=== PATIENT | female | born 1945 | race Caucasian/White ===

== ENCOUNTER → 2017-12-02 | Outpatient (CLI) | payer MEDICARE ==
--- NOTE | 2017-12-02 15:36 | US ---
EXAMINATION TYPE: US bladder DATE OF EXAM: 12/02/2017 COMPARISON: NONE CLINICAL HISTORY: Hematuria R31.9. EXAM MEASUREMENTS: vascular mass left lower bladder wall 1.6 x 1.5 x 1.4 cm Post Void Residual Volume: 11.2 mL Color Doppler performed to assess ureteral jets. Bilateral Jets seen: Yes Normal Post Void Residual (less than 50ml): Yes IMPRESSION: There is 1.6 cm suspicious bladder wall mass, neoplasm is suspected given patient's hist ory of hematuria. Further investigation with cystoscopy is advised. A Yellow level critical message alert has been initiated for David De La O DO via the [employer] Critical Results System on 12/02/2017 3:33 PM. This message alert has been sent to David menchaca DO via the preferences provided by the clinician for the receipt of Radiology Critical Findings. Message ID [id number].
--- NOTE | 2017-12-02 15:37 | US ---
EXAMINATION TYPE: US pelvic complete DATE OF EXAM: 12/02/2017 COMPARISON: NONE CLINICAL HISTORY: Hematuria R31.9. TECHNIQUE: . Transabdominal sonographic images of the pelvis were acquired. Date of LMP: 20 years ago EXAM MEASUREMENTS: Uterus: 6.8 x 2.2 x 3.7 cm Endometrial Stripe: 0.5 cm Right Ovary: 1.9x1.4x1.6 cm Left Ovary: 1.7x1.1x0.9 cm 1. Uterus: Anteverted lower uterine segment small cystic area 1.3 x 0.5 x 0.5 cm 2. Endometrium: Upper limits of normal for post menopausal 3. Right Ovary: wnl 4. Left Ovary: wnl 5. Bilateral Adnexa: wnl 6. Posterior cul-de-sac: wnl IMPRESSION : transabdominal pelvic ultrasound felt within normal limits.
== END | disposition home or self-care (01) ==
LOC: RADUSWWP 14:55
PROVIDERS: ATTEND Family Medicine
DX: R31.9 Hematuria, unspecified (principal)
CPT/HCPCS: 76856; 76857

== ENCOUNTER → 2017-12-21 | Outpatient (CLI) | payer MEDICARE ==
[2017-12-21 14:35] LABS: Blood Urea Nitrogen 6 mg/dL (7-17)
--- NOTE | 2017-12-21 18:47 | CT ---
EXAMINATION TYPE: CT abdomen pelvis w con DATE OF EXAM: 12/21/2017 COMPARISON: Ultrasound 12/02/2017 INDICATION: Gross hematuria DLP: 1214 mGycm, Automated exposure control for dose reduction was used. CONTRAST: 100 mL of Isovue 300. Study performed with Oral Contrast TECHNIQUE: Axial images were obtained from above the diaphragm to the pubic rami in the axial plane a t 5 mm thick sections. Reconstructed images are reviewed on the computer in the coronal plane. FINDINGS: Limited CT sections are obtained the lung bases. The lung bases are clear. There is a moderate size hiatal hernia present. CT ABDOMEN: Liver: Normal Spleen: Normal Pancreas: Normal Adrenal glands: The adrenal glands are normal. Gallbladder: Normal Kidneys: No masses are evident. No hydronephrosis is present. No cysts are present. Delayed images were obtained through the kidneys, which remain unremarkable. Aorta: Vascular calcification is within the aorta. Transverse dimension distal abdominal aorta is 2. 0 cm. This terminates above the bifurcation. Inferior vena cava: Normal. CT PELVIS: Loops of bowel within the abdomen and pelvis are normal. There are loops of bowel which are incom pletely distended or lack oral contrast limiting their evaluation. Multiple diverticuli are within th e sigmoid colon. Appendix: Normal as visualized. Urinary bladder: There is a hyperdense area within the left ureterovesical junction region estimated to measure 1.2 x 1.9 cm in size. Cystoscopy is recommended for additional evaluation. Urinary bladder otherwise appears unremarkable. No calcifications are identified within the urinary bladder. Genitourinary structures: Uterus is normal. Adnexal regions are clear. Osseous structures: No suspicious lytic or sclerotic lesions. IMPRESSIONS: 1. 1.2 x 1.9 cm hyperdense mass within the left posterior lateral portion of the urinary bladder. Cy stoscopy is recommended for additional evaluation. Neoplasm should be considered. 2. Diverticulosis without acute diverticulitis. 3. Minimal increased transverse dimension of the distal abdominal aorta 2.0 cm. 4. Moderate size hiatal hernia.
== END | disposition home or self-care (01) ==
LOC: RADCTMAIN 13:46
PROVIDERS: ATTEND Urology
DX: K44.9 Diaphragmatic hernia without obstruction or gangrene (principal); N32.89 Other specified disorders of bladder; K57.30 Diverticulosis of large intestine without perforation or abscess without bleeding; I71.4 Abdominal aortic aneurysm, without rupture
CPT/HCPCS: 82565; 84520; 74177; 36415; Q9967

== ENCOUNTER 2018-03-09 07:49 | Day surgery (SDC) | payer MEDICARE ==
[~2018-03-09 07:49] MED LIST: ALPRAZolam 0.25 MG TAB PO PRN; ASPIRIN 325 MG TAB PO STA; SODIUM CHLORIDE 0.9% 1,000 ML in EMPTY BAG 1 BAG IV ONE
[2018-03-09 08:40] LABS: Basophils % (A) 0 %; Eosinophils % (A) 1 %; HCT 44.3 % (34.0-46.0); HGB 14.1 gm/dL (11.4-16.0); Lymphocytes # (A) 1.3 k/uL (1.0-4.8); Lymphocytes % (A) 19 %; MCH 29.5 pg (25.0-35.0); MCHC 31.9 g/dL (31.0-37.0); MCV 92.5 fL (80.0-100.0); Mean Platelet Volume 7.3; Monocytes # (A) 0.5 k/uL (0-1.0); Monocytes % (A) 8 %; Neutrophils # (A) 4.6 k/uL (1.3-7.7); Neutrophils % (A) 70 %; Platelet Count 309 k/uL (150-450); RBC 4.79 m/uL (3.80-5.40); RDW 13.4 % (11.5-15.5); WBC 6.6 k/uL (3.8-10.6)
[2018-03-09 08:51] LABS: Anion Gap 12 mmol/L; Blood Urea Nitrogen 8 mg/dL (7-17); Calcium 9.7 mg/dL (8.4-10.2); Carbon Dioxide 24 mmol/L (22-30); Chloride 98 mmol/L (98-107); Glucose 104 mg/dL (74-99); Potassium 4.4 mmol/L (3.5-5.1); Sodium 134 mmol/L (137-145)
[2018-03-09] MEDS ORDERED: IV FLUID CONTINUATION 950 ML IV ONE (09:14)
[2018-03-09] MEDS ORDERED: MIDAZOLAM 2 MG/2 ML VIAL IVP ONE (09:50)
[2018-03-09] MEDS ORDERED: LIDOCAINE 1% INJ 10MG/ML (20 ML MDV) SQ ONE (09:53)
[2018-03-09] MEDS ORDERED: HEPARIN SODIUM 1,000 UN/ML (10ML VL) IV ONE (10:02)
[2018-03-09] MEDS: MIDAZOLAM 2 MG/2 ML VIAL IVP ONE ×2 (10:06→10:17)
[2018-03-09] MEDS ORDERED: SODIUM CHLORIDE 0.9% 500 ML with niCARdipine 6.25 MG, NITROGLYCERIN-D5W PMX 0.05 MG, HE... IV ONE ×4 (10:07)
[2018-03-09] MEDS: fentaNYL (PF) 50 MCG/ML 2 ML AMP IV ONE ×3 (10:38→11:31)
[2018-03-09] MEDS ORDERED: CLOPIDOGREL 75 MG TAB PO ONE (11:16)
[2018-03-09] MEDS ORDERED: NITROGLYCERIN 1000MCG/10ML SYRINGE INTRAARTER ONE (11:37)
[2018-03-09] MEDS: niCARdipine Syringe (1,000 mcg/10 mL) INTRAARTER ONE ×2 (11:37→11:53)
[2018-03-09] MEDS ORDERED: IOPAMIDOL-250 100ML BTL INTRAARTER ONE (12:00)
[2018-03-09] MEDS ORDERED: SODIUM CHLORIDE 0.9% 1,000 ML IV SCH (12:15)
--- NOTE | 2018-03-09 12:27 | IR ---
EXAMINATION TYPE: IR shrimp boat captain femoral popliteal DATE OF EXAM: 03/09/2018 COMPARISON: NONE HISTORY: Peripheral vascular occlusive disease. Fluoroscopy was provided to the referring clinician. See dictated report from cardiology.
--- NOTE | 2018-03-09 14:39 | LTR ---
DATE OF SERVICE: March 09, [address] De La O: Ms. Madeleine Jordan underwent successful atherectomy and balloon angioplasty of the left femoral artery with good angiographic results and without any complication. Thank you for allowing us to participate in her care and please do not hesitate to call if you have any questions or concerns. Sincerely, MMODL / IJN: [id number] /
[2018-03-09] MEDS ORDERED: ATROPINE SULFATE 0.1 MG/ML 10ML SYRINGE ONE (15:59)
--- NOTE | 2018-03-09 17:24 | AN ---
ANGIOGRAPHY REPORT DATE OF SERVICE: March 09, 2018 PERFORMING PHYSICIAN: Sawyer Kemp MD. PROCEDURE PERFORMED: 1. Selective left nrpdu-gjs-ghkm angiogram. 2. Selective left popliteal /SFA angiogram. 3. Selective right common femoral artery angiogram. 4. An atherectomy of the left SFA using the TurboHawk device with extraction of significant amount of plaque. 5. Successful balloon angioplasty of the left SFA using drug coated balloon with good angiographic results. 6. Stenting of the distal SFA using self expandable stent with good angiographic results as well. INDICATION: This is a pleasant 72-year-old female patient who was experiencing bilateral lower extremity intermittent claudication and underwent a peripheral angiogram a few weeks ago and that revealed occluded bilateral SFA. She was brought today to undergo a peripheral intervention on the left SFA and subsequently the right SFA. APPROACH: Right common femoral artery. COMPLICATION: None. LEVEL OF SEDATION: Moderate, sedation length of 2 hours and 5 minutes. PROCEDURE DESCRIPTION: After obtaining an informed consent, the patient was brought to cardiac crown and bridge dental lab technician. The right common femoral artery was cannulated using micropuncture technique and a micropuncture wire passed easily. Then I placed a 6-Indonesian sheath in the right common femoral artery. The sheath was 6-Indonesian 11 cm. At that point, anticoagulation was initiated using heparin and the patient was given 5000 units of heparin. Continuous while the procedure was performed. Subsequently, I did select the left superficial femoral artery using a 5-Indonesian rim catheter with Advantage wire. The Advantage wire was advanced to the left profunda. After that, I did exchange my 11 cm 6-Indonesian sheath into 55 cm 6-Indonesian sheath over the Advantage wire. The tip of the sheath was positioned in the left common femoral artery. After that, I did cross the chronic total occlusion of the left superficial femoral artery using 018 wire. The wire was advanced to the left popliteal. After that, I did balloon angioplasty of the left SFA using 4-0 mm balloon before I did atherectomy using the TurboHawk device with extraction of significant amount of plaque. Subsequently I did balloon angioplasty of the left SFA using drug coated balloon which was 5 mm balloon. The following angiogram showed good angiographic results for the ostial, proximal, mid and distal SFA except for the junction at the Eze canal which showed dissection and narrowing about 50-60 percent quite concerning. Because of that, I decided to cover that with a stent, so I did deploy 7.0 x 60 mm self expandable stent where the stent was positioned under fluoroscopy guidance and deployed under under fluoroscopy guidance. The following angiogram showed good angiographic results and the procedure was completed without any complication. Selective left djerr-rjd-ucbp angiogram post after completion of the procedure showed sluggish flow in the peroneal artery with good flow in the AP and PT. After that, I did exchange my 55 cm sheath into 11 cm sheath using a 035 advantage wire before I did selective right common femoral artery angiogram. The procedure was completed without any complications. POSTPROCEDURE MANAGEMENT: 1. Dual anti-platelet therapy. 2. Risk factors modifications. 3. Follow up with the patient. MMODL / IJN: [id number] /
[2018-03-09 18:08] VITALS: RESP 16
[2018-03-10 06:54] LABS: Basophils % (A) 0 %; Eosinophils # (A) 0.1 k/uL (0-0.7); Eosinophils % (A) 1 %; HCT 40.3 % (34.0-46.0); HGB 13.3 gm/dL (11.4-16.0); Lymphocytes # (A) 1.1 k/uL (1.0-4.8); Lymphocytes % (A) 16 %; MCH 30.5 pg (25.0-35.0); MCHC 32.9 g/dL (31.0-37.0); MCV 92.8 fL (80.0-100.0); Mean Platelet Volume 7.7; Monocytes # (A) 0.8 k/uL (0-1.0); Monocytes % (A) 11 %; Neutrophils # (A) 4.8 k/uL (1.3-7.7); Neutrophils % (A) 70 %; Platelet Count 267 k/uL (150-450); RBC 4.35 m/uL (3.80-5.40); RDW 13.4 % (11.5-15.5); WBC 6.9 k/uL (3.8-10.6)
[2018-03-10 07:11] LABS: Anion Gap 7 mmol/L; Blood Urea Nitrogen 5 mg/dL (7-17); Calcium 9.3 mg/dL (8.4-10.2); Carbon Dioxide 28 mmol/L (22-30); Chloride 99 mmol/L (98-107); Glucose 97 mg/dL (74-99); Potassium 4.3 mmol/L (3.5-5.1); Sodium 134 mmol/L (137-145)
[2018-03-10] MEDS ORDERED: ATORVASTATIN 40 MG TAB PO SCH (09:00)
[2018-03-10] MEDS ORDERED: ASPIRIN 81 MG PO SCH (09:00)
[2018-03-10] MEDS ORDERED: LISINOPRIL 20 MG TAB PO SCH (09:00)
[2018-03-10] MEDS ORDERED: CLOPIDOGREL 75 MG TAB PO SCH (09:00)
[2018-03-10 09:26] VITALS: BP 147/66; PULSE 75; TEMP 96.5
[2018-03-10 10:15] VITALS: BMI 17.2
--- NOTE | 2018-03-10 11:06 | P.PN ---
Subjective Progress Note Date: 03/10/18 03/10/2018 This is a 72-year-old female who had been experiencing bilateral lower extremity intermittent claudication and underwent a peripheral angiogram a few weeks ago which revealed occluded bilateral SFAs. She was brought into the hospital yesterday by Dr. Ibarra and underwent an arthrectomy of the left FSA with extraction of significant amount of plaque. Patient also underwent successful balloon angioplasty of the left SFA with good results. Stenting of the distal SFA using self-expandable stent. She was seen and examined this morning, feels well, quite anxious to be discharged home. Blood pressure 140/68 , heart rate in the 60s, 98% on room air. White blood cell count 6.9, hemoglobin 13.3, platelet count 267. Sodium 134, potassium 4.3, BUN 5, creatinine 0.5. Objective - Vital Signs Vital signs: Vital Signs Temp 96.5 F L 03/10/18 08:00 Pulse 75 03/10/18 08:00 Resp 16 03/10/18 04:00 BP 147/66 03/10/18 08:00 Pulse Ox 97 03/10/18 08:00 Intake & Output 03/09/18 03/10/18 03/10/18 18:59 06:59 18:59 Intake Total 250 150 240 Output Total 1100 Balance 250 -950 240 Weight 44.8 kg 45.4 kg 45.4 kg Intake: IV 250 150 Sodium Chloride 0.9% 1, 150 000 ml @ 75 mls/hr IV . [id number] [facility] Rx#:[id number] Oral 240 Output: Urine 1100 Other: Voiding Method Indwelling Catheter Toilet # Voids 1 - Exam PHYSICAL EXAMINATION: GENERAL: 72-year-old female in no acute distress at the time of my examination HEENT: Head is atraumatic, normocephalic. Pupils equal, round. Sclera anicteric. Conjunctiva are clear. Mucous membranes of the mouth are moist. Neck is supple. There is no elevated jugular venous pressure.] bruit is heard. HEART EXAMINATION: [Heart S1, S2 normal. No murmur or gallop heard.] CHEST EXAMINATION:[ Lungs are clear to auscultation and precussion. No chest wall tenderness is noted on palpation or with deep breathing.] ABDOMEN: [ Soft, nontender. Bowel sounds are heard. No organomegaly noted]. EXTREMITIES:[ 2+ peripheral pulses with no evidence of peripheral edema and no calf tenderness noted]. Right groin has a small pea-sized firm area, no bruit is heard, Dopplers distal pulse. NEUROLOGIC [patient is awake, alert and oriented ?-3.] . - Labs CBC & Chem 7: 03/10/18 06:14 03/10/18 06:14 Labs: Abnormal Lab Results - Last 24 Hours (Table) 03/10/18 Range/Units 06:14 Sodium 134 L (137-145) mmol/L BUN 5 L (7-17) mg/dL Assessment and Plan Plan: Assessment and plan #1 status post arthrectomy of the left SFA with extraction of significant plaque , successful balloon angioplasty of the left SFA, stenting of the distal SFA #2 hypertension #3 hyperlipidemia #4 history of bladder cancer #5 nicotine dependence Patient may be discharged home today on dual antiplatelet therapy in the form of aspirin and Plavix, she will also continue her lisinopril. Appointment with Dr. Ibarra in the office post discharge. DNP note has been reviewed, I agree with a documented findings and plan of care. Patient was seen and examined.
== END 2018-03-10 11:50 | disposition home or self-care (01) ==
LOC: CATHCVL 07:49 → 6SEL 11:44 → CATHCVL 03-10 11:50
PROVIDERS: ATTEND Internal Medicine Interventional Cardiology
DX: I70.213 Atherosclerosis of native arteries of extremities with intermittent claudication, bilateral legs (principal); I70.92 Chronic total occlusion of artery of the extremities; F17.210 Nicotine dependence, cigarettes, uncomplicated; I10 Essential (primary) hypertension; E78.5 Hyperlipidemia, unspecified; Z85.51 Personal history of malignant neoplasm of bladder; Z79.899 Other long term (current) drug therapy; Z79.82 Long term (current) use of aspirin
CPT/HCPCS: 37227; 80048 ×2; 85025 ×2; C1894 ×2; C1769 ×5; C1725 ×2; C1876; C1714; C2623 ×2; J2250; J2001; J3010; J1644; Q9966

== ENCOUNTER 2018-04-13 08:52 | Day surgery (SDC) | payer MEDICARE ==
[2018-04-13] MEDS: SODIUM CHLORIDE 0.9% 1,000 ML IV SCH (09:29)
[2018-04-13 09:33] LABS: Basophils % (A) 1 %; Eosinophils # (A) 0.1 k/uL (0-0.7); Eosinophils % (A) 1 %; HCT 40.5 % (34.0-46.0); HGB 13.1 gm/dL (11.4-16.0); Lymphocytes # (A) 1.2 k/uL (1.0-4.8); Lymphocytes % (A) 20 %; MCH 30.4 pg (25.0-35.0); MCHC 32.4 g/dL (31.0-37.0); Mean Platelet Volume 7.1; Monocytes # (A) 0.6 k/uL (0-1.0); Monocytes % (A) 10 %; Neutrophils # (A) 3.9 k/uL (1.3-7.7); Neutrophils % (A) 67 %; Platelet Count 291 k/uL (150-450); RBC 4.31 m/uL (3.80-5.40); RDW 13.5 % (11.5-15.5); WBC 5.9 k/uL (3.8-10.6)
[2018-04-13 09:48] LABS: Anion Gap 8 mmol/L; Blood Urea Nitrogen 7 mg/dL (7-17); Calcium 9.4 mg/dL (8.4-10.2); Carbon Dioxide 28 mmol/L (22-30); Chloride 101 mmol/L (98-107); Glucose 92 mg/dL (74-99); Sodium 137 mmol/L (137-145)
[2018-04-13] MEDS: MIDAZOLAM 2 MG/2 ML VIAL IV ONE ×2 (11:08→11:53)
[2018-04-13] MEDS ORDERED: LIDOCAINE 1% INJ 10MG/ML (20 ML MDV) SQ ONE (11:09)
[2018-04-13] MEDS ORDERED: HEPARIN SODIUM 1,000 UN/ML (10ML VL) IV ONE (11:15)
[2018-04-13] MEDS ORDERED: fentaNYL (PF) 50 MCG/ML 2 ML AMP IV ONE (12:35)
[2018-04-13] MEDS ORDERED: MIDAZOLAM 2 MG/2 ML VIAL IV ONE (12:44)
[2018-04-13] MEDS ORDERED: CLOPIDOGREL 75 MG TAB PO ONE (12:52)
[2018-04-13] MEDS ORDERED: NITROGLYCERIN 1000MCG/10ML SYRINGE INTRAARTER ONE (12:54)
[2018-04-13] MEDS ORDERED: niCARdipine 25 MG/10 ML VIAL INTRAARTER ONE (12:54)
[2018-04-13] MEDS ORDERED: IOPAMIDOL-250 100ML BTL INTRAARTER ONE (13:12)
[2018-04-13] MEDS ORDERED: SODIUM CHLORIDE 0.9% 1,000 ML IV SCH (13:30)
--- NOTE | 2018-04-13 14:27 | LTR ---
DATE OF SERVICE: 04/13/2018 RE: Madeleine Jordan. Dear Dr. De La O: Ms. Madeleine Jordan underwent successful angioplasty of her left femoral artery a few weeks ago and today she underwent successful angioplasty of the right femoral artery with good angiographic results and without any complication. I want to thank you for allowing me to participate in her care and please do not hesitate to call if you have any question or concern. Sincerely, MD ARMAAN Harris / UMERN: [id number] /
[2018-04-13] MEDS ORDERED: ATROPINE SULFATE 0.1 MG/ML 10ML SYRINGE ONE (16:14)
--- NOTE | 2018-04-13 17:24 | AN ---
ANGIOGRAPHY REPORT DATE OF SERVICE: April 13, 2018 PERFORMING PHYSICIAN: Sawyer Kemp MD, creative guru. PROCEDURE PERFORMED: 1. Selective left common femoral artery angiogram. 2. Selective right jaigx-pho-tmqi angiogram. 3. Selective right popliteal/SFA angiogram. 4. Successful crossing of chronic total occlusion of the right SFA. 5. Atherectomy of the right SFA using the orbital atherectomy device from [employer]. 6. Successful balloon angioplasty of the proximal and mid right SFA. 7. Successful stenting of the distal right SFA using 5.5 x 150 mm Supera stent with good angiographic results. INDICATION: This is a very pleasant 72-year-old female patient who has known history of peripheral arterial disease and known occluded bilateral SFA, who underwent successful balloon angioplasty of the left SFA and was brought today to undergo balloon angioplasty of the right SFA. She does have severe bilateral lower extremities intermittent claudication. APPROACH: Left common femoral artery. COMPLICATION: None. LEVEL OF SEDATION: Moderate with sedation length of 1 hour and 53 minutes. PROCEDURE DESCRIPTION: After obtaining an informed consent, the patient was brought to cardiac laborer chicken farm. The left common femoral artery was cannulated using micropuncture technique, the micropuncture wire passed easily and I placed a 6-Mosotho sheath in the left common femoral artery. Anticoagulation was initiated using heparin. The patient was given 5000 units of heparin IV. After that I did select the right SFA using a 5-Mosotho rim catheter with 035 stiff Glidewire. After that, I did exchange my 11 cm 6-Mosotho sheath into 70 cm 6-Mosotho sheath using 035 stiff Glidewire. After that I did selective right lgyvj-cev-luan angiogram, selective right popliteal angiogram, and selective right SFA angiogram as well. After that, I was able to cross the chronic total occlusion of the right SFA using .018 Gold Tip Glidewire with adjunctive use of 035 stiff Glidewire. After that I did atherectomy of the right SFA using the orbital atherectomy device from [employer]. Then I did balloon angioplasty of the right SFA initially using 4 mm regular balloon and subsequently using 5 mm Chocolate balloon. After that, the following angiogram showed what seems to be dissection seems to be flow-limiting involving the distal SFA which I stented using the Supera the stent which was 5.5 x 150 mm, which was positioned under fluoroscopy guidance and deployed under fluoroscopy guidance. For the proximal and mid right SFA, I did balloon angioplasty using 5 mm drug-coated balloon for the mid and 6 mm drug-coated balloon for the proximal. The following angiogram showed excellent angiographic results with non flow limiting dissection involving the ostial SFA. The procedure was completed without any complication. After that I did exchange my 70 cm 6-Mosotho sheath into 11 cm 6-Mosotho sheath using the 035 glide wire. The procedure, at that point, was completed without any complication. POSTPROCEDURE MANAGEMENT: 1. Dual anti-platelet therapy. 2. Risk factor modifications. 3. Follow up with the patient. MMODL / IJN: [id number] /
[2018-04-14] MEDS: SODIUM CHLORIDE 0.9% 1,000 ML IV SCH (03:41)
[2018-04-14 06:57] LABS: Basophils % (A) 0 %; Eosinophils % (A) 1 %; HCT 37.7 % (34.0-46.0); HGB 11.9 gm/dL (11.4-16.0); Lymphocytes # (A) 0.8 k/uL (1.0-4.8); Lymphocytes % (A) 12 %; MCH 29.8 pg (25.0-35.0); MCHC 31.6 g/dL (31.0-37.0); MCV 94.3 fL (80.0-100.0); Mean Platelet Volume 7.6; Monocytes # (A) 0.7 k/uL (0-1.0); Monocytes % (A) 10 %; Neutrophils % (A) 76 %; Platelet Count 249 k/uL (150-450); RBC 3.99 m/uL (3.80-5.40); RDW 13.4 % (11.5-15.5); WBC 6.6 k/uL (3.8-10.6)
[2018-04-14 07:10] LABS: Anion Gap 6 mmol/L; Blood Urea Nitrogen 5 mg/dL (7-17); Calcium 8.9 mg/dL (8.4-10.2); Carbon Dioxide 26 mmol/L (22-30); Chloride 103 mmol/L (98-107); Glucose 90 mg/dL (74-99); Potassium 4.1 mmol/L (3.5-5.1); Sodium 135 mmol/L (137-145)
[2018-04-14 07:43] VITALS: BP 133/65; PULSE 77; RESP 18; TEMP 97.2
--- NOTE | 2018-04-14 08:57 | IR ---
EXAMINATION TYPE: IR stent intravas non coronary DATE OF EXAM: 04/13/2018 COMPARISON: NONE HISTORY: Peripheral vascular occlusive disease. Fluoroscopy was provided to the referring clinician. See dictated report from cardiology.
[2018-04-14] MEDS ORDERED: ATORVASTATIN 40 MG TAB PO SCH (09:00)
[2018-04-14] MEDS ORDERED: LISINOPRIL 10 MG TAB PO SCH (09:00)
[2018-04-14] MEDS ORDERED: ASPIRIN 81 MG PO SCH (09:00)
[2018-04-14] MEDS ORDERED: CLOPIDOGREL 75 MG TAB PO SCH (09:00)
[2018-04-14 10:20] VITALS: BMI 18.1
--- NOTE | 2018-04-14 18:19 | DS ---
DISCHARGE SUMMARY ADMISSION DATE: April 13, 2018 DATE OF DISCHARGE: April 14, 2018 BRIEF HISTORY: This is a pleasant 73-year-old female patient who was admitted to the hospital yesterday and underwent successful crossing of chronic total occlusion of the right SFA along with atherectomy and balloon angioplasty of the right SFA with good angiographic results. The procedure was performed from the left groin. The left groin is soft and nontender and without any bruises. The patient is going to be discharged home on dual anti- platelet therapy and I will follow up with the patient in the office as an outpatient. MMGIOVANNI / UMERN: [id number] /
== END 2018-04-14 09:59 | disposition home or self-care (01) ==
LOC: CATHCVL 08:52 → 6SEL 13:02 → CATHCVL 04-14 09:59
PROVIDERS: ATTEND Internal Medicine Interventional Cardiology
DX: I70.213 Atherosclerosis of native arteries of extremities with intermittent claudication, bilateral legs (principal); I70.92 Chronic total occlusion of artery of the extremities; F17.210 Nicotine dependence, cigarettes, uncomplicated; Z95.820 Peripheral vascular angioplasty status with implants and grafts; I10 Essential (primary) hypertension; E78.5 Hyperlipidemia, unspecified; Z79.02 Long term (current) use of antithrombotics/antiplatelets; Z79.82 Long term (current) use of aspirin; Z79.899 Other long term (current) drug therapy
CPT/HCPCS: 37227; 80048; 85025

== ENCOUNTER → 2018-11-30 | Outpatient (CLI) | payer MEDICARE ==
--- NOTE | 2018-11-30 11:38 | XR ---
EXAMINATION TYPE: XR chest 2V DATE OF EXAM: 11/30/2018 COMPARISON: NONE HISTORY: Abnormal weight loss. TECHNIQUE: Frontal and lateral views of the chest are obtained. FINDINGS: Pulmonary hyperinflation, flattening of diaphragms, and increased anterior posterior diame ter of the chest are compatible with underlying COPD. There is minimal biapical pleural parenchymal s carring. There is tortuosity of the descending thoracic aorta. Exaggerated thoracic kyphosis is seen with mid thoracic compression deformity that is age indeterminant. Generalized osseous demineralizati on is also present. No focal consolidation, pleural effusion or pneumothorax. Cardiomediastinal silho uette is within normal limits. IMPRESSION: 1. COPD with no acute cardiopulmonary process. 2. Mid thoracic compression deformity is age indeterminant. Correlate with point tenderness.
== END | disposition home or self-care (01) ==
LOC: RADXRMAIN 11:17
PROVIDERS: ATTEND Family Medicine
DX: J44.9 Chronic obstructive pulmonary disease, unspecified (principal); R63.4 Abnormal weight loss
CPT/HCPCS: 71046

== ENCOUNTER → 2019-01-20 | Outpatient (CLI) | payer MEDICARE ==
[2019-01-20 08:40] LABS: African American GFR (CKD) >90 (>60 ml/min/1.73 sqM); Blood Urea Nitrogen 9 mg/dL (7-17)
--- NOTE | 2019-01-20 09:29 | CT ---
EXAMINATION TYPE: CT iac wo/w con DATE OF EXAM: 01/20/2019 COMPARISON: None HISTORY: Right ear infection, pain, and vertigo CT DLP: 365 mGycm Automated exposure control for dose reduction was used. CONTRAST: CT scan of the IACs is performed without and with IV Contrast, patient injected with 100 mL of Isovue 300. FINDINGS: The external auditory canals are patent bilaterally. Mastoid air cells show no evidence of abnormal opacification bilaterally. There is soft tissue noted within the right middle ear cavity pa rtially encasing the ossicular chain measuring 1.2 x 0.9 cm. The findings are felt to reflect cholest eatoma. Left-sided ossicular chain and middle ear cavity are free of mass lesion. The scutum is prese rved bilaterally. The cochlea and the semicircular canals are symmetric and unremarkable. Vestibula r aqueduct and internal carotid canal appear unremarkable. Temporomandibular joints are maintained b ilaterally. IMPRESSION: 1.There is soft tissue noted within the right middle ear cavity partially encasing the ossicular cris n measuring 1.2 x 0.9 cm. The findings are felt to reflect cholesteatoma.
== END | disposition home or self-care (01) ==
LOC: RADCTMAIN 08:00
PROVIDERS: ATTEND Otolaryngology
DX: H71.91 Unspecified cholesteatoma, right ear (principal); M79.89 Other specified soft tissue disorders; R42 Dizziness and giddiness
CPT/HCPCS: 82565; 84520; 70482; 36415; Q9967

== ENCOUNTER → 2019-06-21 | Outpatient (CLI) | payer MEDICARE ==
--- NOTE | 2019-06-22 11:54 | MM ---
Reason for exam: screening (asymptomatic). Last mammogram was performed 3 years and 9 months ago. History: Patient is postmenopausal and has history of other cancer at age 73. Physical Findings: A clinical breast exam by your physician is recommended on an annual basis and results should be correlated with mammographic findings. MG Screening Mammo w CAD Bilateral CC and MLO view(s) were taken. Prior study comparison: September 24, 2015, bilateral MG screening mammo w CAD. The breast tissue is extremely dense which could obscure a lesion on mammography. Benign appearing calcifications in the left breast. Right central slightly inferior focal asymmetry at middle depth. ASSESSMENT: Incomplete: need additional imaging evaluation, BI-RAD 0 RECOMMENDATION: Special view mammogram of the right breast. If lesion persists on supplemental views, image directed ultrasound is recommended. [facility] will attempt to contact patient to return for supplemental views and ultrasound if indicated.
== END | disposition home or self-care (01) ==
LOC: RADMAMWWP 09:18
PROVIDERS: ATTEND Family Medicine
DX: Z12.31 Encounter for screening mammogram for malignant neoplasm of breast (principal)
CPT/HCPCS: 77067

== ENCOUNTER → 2019-07-03 | Outpatient (CLI) | payer MEDICARE ==
--- NOTE | 2019-07-04 07:45 | MM ---
Reason for exam: additional evaluation requested from abnormal screening. Last mammogram was performed less than 1 month ago. History: Patient is postmenopausal and has history of other cancer at age 73. Physical Findings: Nurse did not find any significant physical abnormalities on exam. MG Work Up Mamm w CAD RT Spot compression CC, spot compression MLO, and ML view(s) were taken of the right breast. Prior study comparison: June 21, 2019, bilateral MG screening mammo w CAD. September 24, 2015, bilateral MG screening mammo w CAD. The breast tissue is heterogeneously dense. This may lower the sensitivity of mammography. The previously seen abnormality resolves on additional views and appears as fibroglandular tissue compatible with summation. No suspicious abnormality. These results were verbally communicated with the patient and result sheet given to the patient on 07/03/19. ASSESSMENT: Negative, BI-RAD 1 RECOMMENDATION: Return to routine screening mammogram schedule for both breasts.
== END | disposition home or self-care (01) ==
LOC: RADMAMWWP 14:20
PROVIDERS: ATTEND Family Medicine
DX: R92.8 Other abnormal and inconclusive findings on diagnostic imaging of breast (principal)
CPT/HCPCS: 77065

== ENCOUNTER → 2019-07-04 | Outpatient (CLI) | payer MEDICARE ==
[2019-07-04 07:50] LABS: African American GFR (CKD) >90 (>60 ml/min/1.73 sqM); Blood Urea Nitrogen 12 mg/dL (7-17); Non-African American GFR(CKD) 89 (>60 ml/min/1.73 sqM)
--- NOTE | 2019-07-04 10:05 | CT ---
EXAMINATION TYPE: CT soft tissue neck wo/w con DATE OF EXAM: 07/04/2019 HISTORY: Neck mass left-sided COMPARISON: NONE CT DLP: 427 mGycm. Automated Exposure Control for Dose Reduction was Utilized. TECHNIQUE: CT scan of the neck is attempted without and with IV Contrast, patient injected with 100 ml mL of Isovue 300, axial images are obtained, coronal and sagittal reformatted images are reviewed. FINDINGS: Exam shows suboptimal as IV blew, essentially exam is performed without contrast only. Lack of IV contrast. Noted to limit sensitivity for evaluating mucosal lesions and neck adenopathy. Airway: Mild emphysematous change and lung apices with mild biapical pleural/parenchymal scarring. Parotid/submandibular glands: No gross abnormality seen. Carotid/Vascular Structures: Moderate to severe calcified plaque bilateral carotid bulbs greater on t he left . Osseous Structures: Iqla-oq-hqlvhjud disc space narrowing posterior C5-C6 level. Posterior disc herni ations effacing the anterior thecal sac C4-C5 through C6-C7 levels most prominent at C4-C5 level up t o ventral surface of spinal cord . Other: Scattered subcentimeter lymph nodes throughout the neck bilaterally. No definitive abnormal gr eater than 1 cm adenopathy. Parapharyngeal fat spaces are maintained bilaterally. IMPRESSION: No obvious mass or adenopathy. Suboptimal study due to IV contrast failure and area of co ncern left neck not marked by technologist with marker.
== END | disposition home or self-care (01) ==
LOC: RADCTMAIN 07:08
PROVIDERS: ATTEND Otolaryngology Otology & Neurotology
DX: R22.1 Localized swelling, mass and lump, neck (principal)
CPT/HCPCS: 82565; 84520; 70492; 36415; Q9967

== ENCOUNTER → 2020-05-22 | Outpatient (CLI) | payer MEDICARE ==
[2020-05-22 13:15] LABS: HCT 42.1 % (34.0-46.0); HGB 13.5 gm/dL (11.4-16.0); MCHC 32.1 g/dL (31.0-37.0); MCV 96.5 fL (80.0-100.0); Mean Platelet Volume 10.5; Platelet Count 267 k/uL (150-450); RBC 4.36 m/uL (3.80-5.40); RDW 12.9 % (11.5-15.5); WBC 5.8 k/uL (3.8-10.6)
[2020-05-22 13:28] LABS: African American GFR (CKD) >90 (>60 ml/min/1.73 sqM); Anion Gap 7 mmol/L; Blood Urea Nitrogen 12 mg/dL (7-17); Carbon Dioxide 28 mmol/L (22-30); Chloride 101 mmol/L (98-107); Non-African American GFR(CKD) 89 (>60 ml/min/1.73 sqM); Potassium 4.6 mmol/L (3.5-5.1); Sodium 136 mmol/L (137-145)
== END | disposition home or self-care (01) ==
LOC: LABPAT 10:55
PROVIDERS: ATTEND Internal Medicine Interventional Cardiology
DX: Z01.818 Encounter for other preprocedural examination (principal); I70.213 Atherosclerosis of native arteries of extremities with intermittent claudication, bilateral legs
CPT/HCPCS: 80051; 82565; 84520; 85027

== ENCOUNTER 2020-05-30 09:22 | Day surgery (SDC) | payer MEDICARE ==
[2020-05-28 11:08] VITALS: BMI 17.5
[~2020-05-30 09:22] MED LIST changes: +ASPIRIN 325 MG TAB PO ONE; -ASPIRIN 325 MG TAB PO STA
[2020-05-30] MEDS ORDERED: SODIUM CHLORIDE 0.9% 1,000 ML IV ONE (09:35)
[2020-05-30 09:54] VITALS: RESP 16; TEMP 97.9
[2020-05-30] MEDS: MIDAZOLAM 2 MG/2 ML VIAL IV ONE ×2 (10:11→10:18)
[2020-05-30] MEDS ORDERED: LIDOCAINE 1% INJ 10MG/ML (20 ML MDV) SQ ONE (10:14)
[2020-05-30] MEDS ORDERED: IOPAMIDOL-250 50ML BTL INTRAARTER ONE (10:25)
[2020-05-30] MEDS ORDERED: IOPAMIDOL-250 100ML BTL INTRAARTER ONE (10:25)
[2020-05-30] MEDS ORDERED: SODIUM CHLORIDE 0.9% 1,000 ML in EMPTY BAG 1 BAG IV SCH (10:45)
--- NOTE | 2020-05-30 11:37 | IR ---
EXAMINATION TYPE: IR angio abdominal w runoff DATE OF EXAM: 05/30/2020 CLINICAL HISTORY: Right leg pain. TECHNIQUE: Fluoroscopy. COMPARISON: None. FINDINGS: Fluoroscopic guidance was provided during abdominal angiogram with runoff procedure perfor med by Dr. Kemp. A total of 72 seconds of fluoroscopic time was utilized during the procedure and 18 7 spot images was acquired. Images show access via right groin with subsequent angiogram and runoff. Please refer to procedure note for further details as I was not present nor performed procedure. IMPRESSION: As Above.
[2020-05-30 14:13] VITALS: PULSE 60
[2020-05-30 16:25] VITALS: BP 117/57
--- NOTE | 2020-05-30 18:25 | AN ---
ANGIOGRAPHY REPORT DATE OF SERVICE: 05/30/2020 PERFORMING PHYSICIAN: Sawyer Kemp MD. PROCEDURES PERFORMED: 1. An abdominal aortogram. 2. Bilateral lower extremities runoff. INDICATION: This is a 75-year-old female patient with smoking and history of peripheral arterial disease and prior revascularization, who was experiencing right leg intermittent claudication that appeared to be severe enough and interfering with her daily activities. She underwent an arterial duplex study which revealed occluded SFA. She was brought today for angiogram. APPROACH: Right common femoral artery. COMPLICATION: None. LEVEL OF SEDATION: Moderate with sedation length of 15 minutes. PROCEDURE DESCRIPTION: After obtaining informed consent, the patient was brought to the cardiac roving tester laboratory. The right common femoral artery was cannulated using micropuncture technique, the micropuncture wire passed easily then I placed a 5-[place]wanan sheath at the right common femoral artery. I did after that an abdominal aortogram and bilateral lower extremities runoff using 5-[place]wanan pigtail catheter which was initially placed at the level of the renal arteries and then it was pulled into above the bifurcation of the aorta to right and left common iliac arteries. The procedure was completed without any complication. Selective peripheral angiogram. 1. The aorta appeared to have mild disease only and seems to be calcified. 2. Common iliac arteries. The right and left common iliac arteries appeared to be calcified with mild disease only. 3. Internal iliac arteries both are patent. 4. External iliac arteries both are calcified. The right external iliac artery appeared to have mild disease only and the left external iliac artery appeared to have intermediate disease only as well. 5. Profunda. Both profunda are patent. 6. Common femoral arteries. The right and left common femoral artery appeared to have mild disease only. 7. SFA. The right SFA is occluded from the ostium and reconstitutes by the popliteal above the knee. The left SFA has mild to moderate diffuse disease up to about 60 to 70% by the popliteal segment. 8. Popliteal. The right popliteal appeared to be occluded and the left popliteal appeared to have intermediate disease only. 9. Below the knee, there are 3 vessel runoff below the knee bilaterally. CONCLUSION: 1. Intermediate disease involving the left external iliac artery. 2. Occluded right superficial femoral artery on long segment that extends from the ostium all the way to the popliteal. 3. Three vessel runoff below the knee bilaterally. POSTPROCEDURE MANAGEMENT: 1. Maximize medical treatment. 2. Follow up with the patient. 3. Consider revascularization for the right superficial femoral artery/popliteal. MMODL / IJN: [id number] /
== END 2020-05-30 16:42 | disposition home or self-care (01) ==
LOC: CATHCVL 09:22
PROVIDERS: ATTEND Internal Medicine Interventional Cardiology
DX: I70.213 Atherosclerosis of native arteries of extremities with intermittent claudication, bilateral legs (principal); I70.8 Atherosclerosis of other arteries; E78.5 Hyperlipidemia, unspecified; I10 Essential (primary) hypertension; F17.200 Nicotine dependence, unspecified, uncomplicated; Z98.62 Peripheral vascular angioplasty status; Z79.82 Long term (current) use of aspirin; Z79.899 Other long term (current) drug therapy
CPT/HCPCS: 36200; 75625; 75716; C1769 ×5; C1894; J2250; J2001; Q9966 ×2

== ENCOUNTER → 2022-04-09 | Outpatient (CLI) | payer MEDICARE ==
[2022-04-09 10:55] LABS: MCH 30.2 pg (27.0-32.0); MCHC 32.6 g/dL (32.0-37.0); MCV 92.7 fL (80.0-97.0); Mean Platelet Volume 12.5 fL (9.5-12.2); NRBC Per 100 WBC 0 /100 WBCS (0.0-0.0); Platelet Count 309 X 10*3/uL (140-440); RBC 4.64 X 10*6/uL (4.10-5.20); RDW 13.7 % (11.5-14.5); WBC 6.65 X 10*3/uL (4.50-10.00)
[2022-04-09 10:58] LABS: African American GFR (CKD) 83.6 (60.0-200.0); Anion Gap 11.5 mmol/L (10.00-18.00); Blood Urea Nitrogen 10.1 mg/dL (9.0-27.0); Carbon Dioxide 26.5 mmol/L (20.0-27.5); Non-African American GFR(CKD) 72.1 (60.0-200.0); Potassium 4.3 mmol/L (3.5-5.5)
== END | disposition home or self-care (01) ==
LOC: LABPAT 08:01
PROVIDERS: ATTEND Internal Medicine Interventional Cardiology
DX: Z01.812 Encounter for preprocedural laboratory examination (principal); I70.213 Atherosclerosis of native arteries of extremities with intermittent claudication, bilateral legs
CPT/HCPCS: 36415; 80051; 82565; 84520; 85027

== ENCOUNTER 2022-04-22 06:16 | Day surgery (SDC) | payer MEDICARE ==
[2022-04-21 08:56] VITALS: BMI 17.2
[2022-04-22] MEDS ORDERED: ZOLPIDEM 5 MG TAB PO PRN (06:27)
[2022-04-22] MEDS ORDERED: HEPARIN SODIUM,PORCINE 10,000 UNIT in SODIUM CHLORIDE 0.9% 1,000 ML IRRIGATION PRN (06:27)
[2022-04-22] MEDS ORDERED: SODIUM CHLORIDE 0.9% 1,000 ML in EMPTY BAG 1 BAG IV ONE (06:27)
[2022-04-22] MEDS ORDERED: ALPRAZolam 0.5 MG TAB PO PRN (06:27)
[2022-04-22] MEDS ORDERED: ASPIRIN 325 MG TAB PO PRN (06:27)
[2022-04-22] MEDS ORDERED: ALPRAZolam 0.25 MG TAB PO PRN (06:27)
[2022-04-22] MEDS ORDERED: HEPARIN SODIUM,PORCINE 2,500 UNIT in SODIUM CHLORIDE 0.9% 250 ML IRRIGATION PRN (06:27)
[2022-04-22] MEDS ORDERED: SODIUM CHLORIDE 0.9% 1,000 ML IV ONE (06:45)
[2022-04-22 08:15] VITALS: RESP 18; TEMP 97.9
[2022-04-22] MEDS ORDERED: HEPARIN SODIUM 1,000 UN/ML (10ML VL) ONE (09:52)
[2022-04-22] MEDS: MIDAZOLAM 2 MG/2 ML VIAL IV ONE ×2 (09:56→10:07)
[2022-04-22] MEDS ORDERED: fentaNYL (PF) 50 MCG/ML 2 ML AMP ONE (10:06)
[2022-04-22] MEDS ORDERED: fentaNYL (PF) 50 MCG/ML 2 ML AMP IV ONE (10:07)
[2022-04-22] MEDS ORDERED: IOPAMIDOL-250 100ML BTL INTRAARTER ONE (10:10)
[2022-04-22] MEDS ORDERED: NALOXONE 0.4 MG/ML 1 ML VIAL IVP PRN (10:23)
--- NOTE | 2022-04-22 10:28 | IR ---
EXAMINATION TYPE: IR angio abdominal w runoff DATE OF EXAM: 04/22/2022 COMPARISON: NONE HISTORY: Fluoroscopy time. Fluoroscopy was provided to the referring clinician.
[2022-04-22] MEDS ORDERED: SODIUM CHLORIDE 0.9% 1,000 ML in EMPTY BAG 1 BAG IV SCH (10:30)
--- NOTE | 2022-04-22 10:32 | P.PCN ---
Date of Procedure: 04/22/22 Operative Findings: AN ABDOMINAL AORTOGRAM AND BILATERAL LOWER EXTREMITIES RUNOFF PERFORMING PHYSICIAN: Sawyer Kemp MD PROCEDURE PERFORMED: 1. An abdominal aortogram 2. Bilateral lower extremities runoff 3. Ultrasound-guided access of the right common femoral artery INDICATION: This is a 77-year-old female patient was known to have lower extremity peripheral arterial disease with prior revascularization was seen in the office recently where she was experiencing bilateral lower extremities discomfort concerning for intermittent claudication. COMPLICATION: Non- LEVEL OF SEDATION: Moderate was sedation length of 12 minutes APPROACH: Right common femoral artery PROCEDURE DESCRIPTION: After obtaining informed consent and explaining the procedure benefits, risks, and complications, the patient was brought to the cardiac builder's labourer. The right groin was prepped and draped in sterile fashion. The right common femoral artery was cannulated using micropuncture technique, under ultrasound guidance. A micropuncture wire was advanced, and the micropuncture sheath was advanced over the wire, then the micropuncture sheath was exchanged over an 0.35 wire into a 5-[place]ib[place]ian sheath dilator assembly then the wire and dilator were removed and sheath was flushed. We did an abdominal aortogram and bilateral lower extremities runoff using 5- [place]ian pigtail catheter using a power injection. The catheter was initially placed at the level of the renal arteries, and it was pulled into above the bifurcation of the aorta into right and left common iliac arteries. The procedure was completed and there was no complications. SELECTIVE PERIPHERAL ANGIOGRAM: The abdominal aorta: Is angiographically normal. It is a calcified aorta. The common iliac arteries: The right common iliac artery appeared to be calcified was mild disease only. The left common iliac artery appeared to be calcified was mild disease as well. The external iliac arteries: The right and left external iliac arteries appeared to have intermediate lesions only The internal iliac arteries: Both internal iliac arteries are patent The common femoral arteries: The right and left common femoral arteries appeared to have mild disease only Superficial femoral arteries: Both SFA are occluded and reconstituted by the popliteal bilaterally Popliteal arteries: Both popliteal are occluded. Below the knees: The arteries below the knee are poorly visualized but it seems to be 3 vessels run off below the knee bilaterally CONCLUSION: 1. Intermediate disease involving both external iliac arteries 2. Occluded bilateral SFA 3. Occluded bilateral popliteal 4. Three vessels run off below the knee bilaterally POSTPROCEDURE MANAGEMENT: OUTPLACEMENT CONSULTANT of the right and left SFA to be performed on separate session probably from a pedal approach
[2022-04-22 16:06] VITALS: BP 112/54; PULSE 64
== END 2022-04-22 16:08 | disposition home or self-care (01) ==
LOC: CATHCVL 06:16
PROVIDERS: ATTEND Internal Medicine Interventional Cardiology
DX: I70.213 Atherosclerosis of native arteries of extremities with intermittent claudication, bilateral legs (principal)
CPT/HCPCS: 36200; 75625; 75716; 76937; C1769 ×3; J2250; J3010; Q9966

== ENCOUNTER 2023-07-10 08:53 | Emergency (ER) | payer MEDICARE ==
--- NOTE | 2023-07-10 09:32 | XR ---
EXAMINATION TYPE: XR lumbar spine 2 or 3V DATE OF EXAM: 07/10/2023 9:23 AM CLINICAL INDICATION:Female, 78 years old with history of Back injury; COMPARISON: None TECHNIQUE: XR lumbar spine 2 or 3V - Frontal, lateral and coned in L5-S1 lateral views of the spine. FINDINGS: L1 vertebral body compression deformity with at least 50% height loss anteriorly. L4 verteb ral body compression deformity with at least 25% height loss. Osteophyte formation facet joint arthro luis seen throughout the spine. Atherosclerosis of the arterial vasculature. IMPRESSION: 1. Compression deformity of the L1 and L4 superior endplates which are age-indeterminate. 2. Moderate multilevel disc degeneration.
[2023-07-10] MEDS ORDERED: HYDROcodone/APAP 5-325MG 1 EACH TAB PO STA (09:43)
--- NOTE | 2023-07-10 10:51 | ED ---
Back Pain HPI - General Chief Complaint: Back Pain/Injury Stated Complaint: lower back pain Time Seen by Provider: 07/10/23 09:21 Source: patient, RN notes reviewed Limitations: no limitations - History of Present Illness Initial Comments: 78-year-old female presents emergency Department with chief complaint of low back pain. Patient states she bent over to pick her dog up states that she felt a pop. She states she's had no prior back problems that she denies any falls, motor vehicle accident. She denies any bowel, bladder incontinence or retention no lower extremity weakness paresthesias or saddle anesthesias. Patient denies any fevers chills no abdominal complaints. - Related Data Home Medications Medication Instructions Recorded Confirmed Aspirin [Adult Low Dose Aspirin EC] 81 mg PO Q2D 03/02/18 04/22/22 Atorvastatin Calcium [Lipitor] 20 mg PO HS 03/02/18 04/21/22 lisinopriL [Zestril] 20 mg PO HS 04/13/18 04/21/22 Mirtazapine 15 mg PO HS 04/21/22 04/21/22 Previous Rx's Medication Instructions Recorded HYDROcodone/APAP 5-325MG [[place] 5] 1 each PO Q6HR PRN #12 tab 07/10/23 Allergies Allergy/AdvReac Type Severity Reaction Status Date / Time No Known Allergies Allergy Verified 07/10/23 09:09 Review of Systems ROS Statement: Those systems with pertinent positive or pertinent negative responses have been documented in the HPI. ROS Other: All systems not noted in ROS Statement are negative. Past Medical History Past Medical History: Cancer, Hyperlipidemia, Hypertension, Vascular Disorder Additional Past Medical History / Comment(s): "no pulse in feet", bladder cancer, History of Any Multi-Drug Resistant Organisms: None Reported Past Surgical History: Bladder Surgery Additional Past Surgical History / Comment(s): angiogram,Stent to rca/lad 03/05; birthmark removed from neck, tumor removed from bladder; adrian. cataracts Past Anesthesia/Blood Transfusion Reactions: No Reported Reaction Past Psychological History: No Psychological Hx Reported Smoking Status: Current every day smoker Past Alcohol Use History: Occasional Past Drug Use History: None Reported - Past Family History Mother Family Medical History: No Reported History General Exam Limitations: no limitations General appearance: alert, in no apparent distress Head exam: Present: atraumatic, normocephalic, normal inspection Neck exam: Present: normal inspection, full ROM. Absent: tenderness, meningismus, lymphadenopathy Respiratory exam: Present: normal lung sounds bilaterally. Absent: respiratory distress, wheezes, rales, rhonchi, stridor Cardiovascular Exam: Present: regular rate, normal rhythm, normal heart sounds. Absent: systolic murmur, diastolic murmur, rubs, gallop, clicks GI/Abdominal exam: Present: soft, normal bowel sounds. Absent: distended, tenderness, guarding, rebound, rigid Extremities exam: Present: normal inspection, full ROM, normal capillary refill. Absent: tenderness, pedal edema, joint swelling, calf tenderness Back exam: Present: full ROM, tenderness, muscle spasm, paraspinal tenderness. Absent: vertebral tenderness Neurological exam: Present: reflexes normal. Absent: motor sensory deficit Course Vital Signs 07/10/23 07/10/23 09:05 11:27 Temperature 97.5 F L 97.9 F Pulse Rate 101 H 68 Respiratory 18 16 Rate Blood Pressure 167/78 123/65 O2 Sat by Pulse 97 97 Oximetry Medical Decision Making - Medical Decision Making Was pt. sent in by a medical professional or institution (, PA, DOMESTIC VIOLENCE COUNSELOR, urgent care, hospital, or prison...) When possible be specific @ -No Did you speak to anyone other than the patient for history (EMS, parent, family, police, friend...)? What history was obtained from this source @ -No Did you review nursing and triage notes (agree or disagree)? Why? @ -I reviewed and agree with nursing and triage notes Were old charts reviewed (outside hosp., previous admission, EMS record, old EKG, old radiological studies, urgent care reports/EKG's, prison records)? Report findings @ -No old charts were reviewed Differential Diagnosis (chest pain, altered mental status, abdominal pain women, abdominal pain men, vaginal bleeding, weakness, fever, dyspnea, syncope, headache, dizziness, GI bleed, back pain, seizure, CVA, palpatations, mental health, musculoskeletal)? @ -Differential Back Pain: Strain, zoster, cauda equina syndrome, epidural abscess, vertebral osteomyelitis, discitis, fracture, subluxation, disc herniation, DJD, spinal stenosis, dissection, AAA, pancreatitis, peptic ulcer disease, pyelonephritis, kidney stone, this is not meant to be an all-inclusive list.e EKG interpreted by me (3pts min.). @ -None X-rays interpreted by me (1pt min.). @ -X-ray lumbar spine showing possible L1 and L4 compression fracture age indeterminate CT interpreted by me (1pt min.). @ -CT lumbar spine showing acute compression fracture L4 with 25% or less, chronic deformity T12-L1 U/S interpreted by me (1pt. min.). @ -None done What testing was considered but not performed or refused? (CT, X-rays, U/S, labs)? Why? @ -None What meds were considered but not given or refused? Why? @ -None Did you discuss the management of the patient with other professionals (professionals i.e. , PA, DOMESTIC VIOLENCE COUNSELOR, lab, RT, psych nurse, social sciences professor, manager market intelligence, teacher, aoc plans intelligence officer chief, cyanide case hardener)? Give summary @ -[I did discuss case with Rosalino on-call for orthopedics recommends the patient to limit activity to follow-up with Dr. Jacobs sent and return for any worsening changes symptoms Was smoking cessation discussed for >3mins.? @ -No Was critical care preformed (if so, how long)? @ -No Were there social determinants of health that impacted care today? How? (Homelessness, low income, unemployed, alcoholism, drug addiction, transportation, low edu. Level, literacy, decrease access to med. care, senior care, rehab)? @ -No Was there de-escalation of care discussed even if they declined (Discuss DNR or withdrawal of care, Hospice)? DNR status @ -No What co-morbidities impacted this encounter? (DM, HTN, Smoking, COPD, CAD, Cancer, CVA, ARF, Chemo, Hep., AIDS, mental health diagnosis, sleep apnea, morbid obesity)? @ -None Was patient admitted / discharged? Hospital course, mention meds given and route, prescriptions, significant lab abnormalities, going to OR and other pertinent info. @ -Discharge patient is given strict return parameters and start restrictive activity at home. She does have a compression fracture on imaging return parameters were discussed. Undiagnosed new problem with uncertain prognosis? @ -No Drug Therapy requiring intensive monitoring for toxicity (Heparin, Nitro, Insulin, Cardizem)? @ -No Were any procedures done? @ -No Diagnosis/symptom? @ -[Compression fracture L4 Acute, or Chronic, or Acute on Chronic? @ -[Acute Uncomplicated (without systemic symptoms) or Complicated (systemic symptoms)? @ -[uncomplicated Side effects of treatment? @ -No Exacerbation, Progression, or Severe Exacerbation? @ -No Poses a threat to life or bodily function? How? (Chest pain, USA, MS, pneumonia, PE, COPD, DKA, ARF, appy, cholecystitis, CVA, Diverticulitis, Homicidal, Suicidal, threat to staff... and all critical care pts) @ -No Disposition Clinical Impression: Lumbar compression fracture Disposition: HOME SELF-CARE Condition: Stable Instructions (If sedation given, give patient instructions): Vertebral Compression Fracture (ED) Additional Instructions: Please return to the Emergency Department if symptoms worsen or any other concerns. Prescriptions: HYDROcodone/APAP 5-325MG [[place] 5] 1 each PO Q6HR PRN #12 tab PRN Reason: Pain Is patient prescribed a controlled substance at d/c from ED?: No Referrals: David De La O DO [Primary Care Provider] - 1-2 days Wilfredo Fabian DO [Doctor of Osteopathic Medicine] - 1-2 days Time of Disposition: 11:13
--- NOTE | 2023-07-10 10:54 | CT ---
EXAMINATION TYPE: CT lumbar spine wo con CT DLP: 445.2 mGycm, Automated exposure control for dose reduction was used. DATE OF EXAM: 07/10/2023 10:15 AM COMPARISON: Same day radiograph.. CLINICAL INDICATION:Female, 78 years old with history of pain, abnormal x-ray; PHH, Abnormal xray, r ecent injury TECHNIQUE: Multiple axial images were obtained from the midportion of T11 through the sacroiliac rodney nts. Soft tissue and bone windows in coronal and sagittal planes were obtained and reviewed. Contrast used: mL of , none. Oral contrast used: none. FINDINGS: Cortical buckling and trabecular thickening of the L4 superior vertebral body with cortical defect on series 2012 image 33. There is less than 25% height loss. The other compression deformities of the a t L1 and T12 vertebral bodies. Remote. No evidence for acute fracture. Multilevel degeneration change s with facet joint arthropathy and osteophyte formation. There is disc bulging at L4-L5 with mild to moderate, L3-L4 with mild to moderate spinal canal stenosis. The neural foramen appear patent bilater ally. IMPRESSION: 1. Cortical buckling with superior endplate lucency suggesting L4 acute compression fracture. There is less than 25% height loss, no retropulsion. Chronic appearing deformities at T12 and L1. 2. Moderate disc degeneration changes of the spine.
[2023-07-10 11:49] VITALS: BP 123/65; PULSE 68; RESP 16; TEMP 97.9
== END 2023-07-10 11:33 | disposition home or self-care (01) ==
LOC: EC 08:53
DX: S32.040A Wedge compression fracture of fourth lumbar vertebra, initial encounter for closed fracture (principal); E78.5 Hyperlipidemia, unspecified; I10 Essential (primary) hypertension; F17.200 Nicotine dependence, unspecified, uncomplicated; Z79.899 Other long term (current) drug therapy; Z79.82 Long term (current) use of aspirin; Z95.5 Presence of coronary angioplasty implant and graft; X58.XXXA Exposure to other specified factors, initial encounter
CPT/HCPCS: 72100; 72131; 99284

== ENCOUNTER 2023-08-24 18:34 | Emergency (ER) | payer MEDICARE ==
--- NOTE | 2023-08-24 19:05 | ED ---
General Adult HPI - General Chief complaint: Nausea/Vomiting/Diarrhea Stated complaint: N/V Time Seen by Provider: 08/24/23 18:46 Source: patient, RN notes reviewed Mode of arrival: wheelchair Limitations: no limitations - History of Present Illness Initial comments: Patient is a pleasant 78-year-old female presenting to the emergency department with nausea vomiting. Onset of symptoms was close to a week ago. Patient has vomited around 5 times. Patient still has nausea and decreased appetite. Patient has mild discomfort in the epigastric region. No history of chronic similar problems previously. Patient believes she has a stomach flu. - Related Data Home Medications Medication Instructions Recorded Confirmed Aspirin [Adult Low Dose Aspirin EC] 81 mg PO Q2D 03/02/18 04/22/22 Atorvastatin Calcium [Lipitor] 20 mg PO HS 03/02/18 04/21/22 lisinopriL [Zestril] 20 mg PO HS 04/13/18 04/21/22 Mirtazapine 15 mg PO HS 04/21/22 04/21/22 Previous Rx's Medication Instructions Recorded HYDROcodone/APAP 5-325MG [[place] 5] 1 each PO Q6HR PRN #12 tab 07/10/23 Famotidine [Pepcid] 20 mg PO BID #30 tablet 08/24/23 Ondansetron Odt [Zofran Odt] 4 mg PO Q8HR PRN #10 tab 08/24/23 Allergies Allergy/AdvReac Type Severity Reaction Status Date / Time No Known Allergies Allergy Verified 08/24/23 18:43 Review of Systems ROS Statement: Those systems with pertinent positive or pertinent negative responses have been documented in the HPI. ROS Other: All systems not noted in ROS Statement are negative. Constitutional: Denies: fever Eyes: Denies: eye pain ENT: Denies: ear pain Respiratory: Denies: dyspnea Cardiovascular: Denies: chest pain Endocrine: Denies: fatigue Gastrointestinal: Reports: as per HPI, abdominal pain, nausea, vomiting. Denies: diarrhea, constipation Skin: Denies: rash Neurological: Denies: weakness Past Medical History Past Medical History: Cancer, Hyperlipidemia, Hypertension, Vascular Disorder Additional Past Medical History / Comment(s): "no pulse in feet", bladder cancer, History of Any Multi-Drug Resistant Organisms: None Reported Past Surgical History: Bladder Surgery Additional Past Surgical History / Comment(s): angiogram,Stent to rca/lad 03/05; birthmark removed from neck, tumor removed from bladder; adrian. cataracts Past Anesthesia/Blood Transfusion Reactions: No Reported Reaction Past Psychological History: No Psychological Hx Reported Smoking Status: Current every day smoker Past Alcohol Use History: Rare Past Drug Use History: None Reported - Past Family History Mother Family Medical History: No Reported History General Exam Limitations: no limitations General appearance: alert, in no apparent distress Head exam: Present: normocephalic Eye exam: Present: normal appearance Neck exam: Present: normal inspection Respiratory exam: Present: normal lung sounds bilaterally Cardiovascular Exam: Present: regular rate, normal rhythm Expanded Peripheral pulses: 2+: Dorsalis Pedis (R), Dorsalis Pedis (L) GI/Abdominal exam: Present: soft, tenderness (Mild epigastric tenderness to palpation), normal bowel sounds. Absent: distended, guarding, rebound, rigid, pulsatile mass Extremities exam: Present: normal inspection Neurological exam: Present: alert Psychiatric exam: Present: normal affect, normal mood Skin exam: Present: normal color Course Vital Signs 08/24/23 18:37 Temperature 98.4 F Pulse Rate 106 H Respiratory 18 Rate Blood Pressure 109/64 O2 Sat by Pulse 99 Oximetry EKG Findings - EKG Results: EKG: interpreted by ERMD (Sinus arrhythmia. Left axis. Incomplete right bundle branch block. Nonspecific T waves), sinus rhythm EKG shows: tachycardia Medical Decision Making - Medical Decision Making Was pt. sent in by a medical professional or institution (, PA, LEAD BLENDER, urgent care, hospital, or retirement...) When possible be specific @ -No Did you speak to anyone other than the patient for history (EMS, parent, family, police, friend...)? What history was obtained from this source @ -Daughter is present and helps provide additional history including patient's symptoms Did you review nursing and triage notes (agree or disagree)? Why? @ -I reviewed and agree with nursing and triage notes Were old charts reviewed (outside hosp., previous admission, EMS record, old EKG, old radiological studies, urgent care reports/EKG's, retirement records)? Report findings @ -No old charts were reviewed Differential Diagnosis (chest pain, altered mental status, abdominal pain women, abdominal pain men, vaginal bleeding, weakness, fever, dyspnea, syncope, headache, dizziness, GI bleed, back pain, seizure, CVA, palpatations, mental health, musculoskeletal)? @ -Differential Abdominal Pain Women: Appendicitis, Cholecystitis, diverticulosis, ischemic bowel, pancreatitis, hepatitis, UTI, gastroenteritis, AAA, incarcerated hernia, bowel obstruction, constipation, inflammatory bowel, hepatitis, peptic ulcer disease, splenic infarction, perforated viscus, vulvitis, ovarian torsion, PID, kidney stone, placenta abruption, this is not meant to be an all-inclusive list EKG interpreted by me (3pts min.). @ -As above X-rays interpreted by me (1pt min.). @ -Abdominal x-ray shows no acute process CT interpreted by me (1pt min.). @ -None done U/S interpreted by me (1pt. min.). @ -None done What testing was considered but not performed or refused? (CT, X-rays, U/S, labs)? Why? @ -On reevaluation patient states she has had a mild cough. Consider further testing including viral testing and imaging however patient does not want this done What meds were considered but not given or refused? Why? @ -None Did you discuss the management of the patient with other professionals (professionals i.e. , PA, LEAD BLENDER, lab, RT, psych nurse, social and political studies professor, corporate lawyer, teacher, chief technical officer, residential case manager)? Give summary @ -No Was smoking cessation discussed for >3mins.? @ -No Was critical care preformed (if so, how long)? @ -No Were there social determinants of health that impacted care today? How? (H omelessness, low income, unemployed, alcoholism, drug addiction, transportation, low edu. Level, literacy, decrease access to med. care, long-term, rehab)? @ -No Was there de-escalation of care discussed even if they declined (Discuss DNR or withdrawal of care, Hospice)? DNR status @ -No What co-morbidities impacted this encounter? (DM, HTN, Smoking, COPD, CAD, Cancer, CVA, ARF, Chemo, Hep., AIDS, mental health diagnosis, sleep apnea, morbid obesity)? @ -None Was patient admitted / discharged? Hospital course, mention meds given and route, prescriptions, significant lab abnormalities, going to OR and other pertinent info. @ -Patient reevaluated and resting comfortably in bed. Nonspecific symptoms. Patient still feels fatigued. Patient denies nausea at this time. Patient and family are updated on results and need for follow-up Undiagnosed new problem with uncertain prognosis? @ -No Drug Therapy requiring intensive monitoring for toxicity (Heparin, Nitro, Insulin, Cardizem)? @ -No Were any procedures done? @ -No Diagnosis/symptom? @ -Vomiting Acute, or Chronic, or Acute on Chronic? @ -Acute Uncomplicated (without systemic symptoms) or Complicated (systemic symptoms)? @ -Default Side effects of treatment? @ -No Exacerbation, Progression, or Severe Exacerbation? @ -No Poses a threat to life or bodily function? How? (Chest pain, USA, [place], pneumonia, PE, COPD, DKA, ARF, appy, cholecystitis, CVA, Diverticulitis, Homicidal, Suicidal, threat to staff... and all critical care pts) @ -No - Lab Data Result diagrams: 08/24/23 19:49 08/24/23 19:49 Lab Results 08/24/23 08/24/23 08/24/23 Range/Units 19:49 19:49 19:49 WBC 11.3 H (3.8-10.6) k/uL RBC 4.51 (3.80-5.40) m/uL Hgb 13.6 (11.4-16.0) gm/dL Hct 40.0 (34.0-46.0) % MCV 88.8 (80.0-100.0) fL MCH 30.1 (25.0-35.0) pg MCHC 33.9 (31.0-37.0) g/dL RDW 12.8 (11.5-15.5) % Plt Count 445 (150-450) k/uL MPV 9.0 Neutrophils % 83 % Lymphocytes % 7 % Monocytes % 8 % Eosinophils % 1 % Basophils % 0 % Neutrophils # 9.4 H (1.3-7.7) k/uL Lymphocytes # 0.8 L (1.0-4.8) k/uL Monocytes # 0.9 (0-1.0) k/uL Eosinophils # 0.1 (0-0.7) k/uL Basophils # 0.0 (0-0.2) k/uL PT 10.5 (10.0-12.5) sec INR 0.9 (<1.2) APTT 24.1 (22.0-30.0) sec Sodium 135 L (137-145) mmol/L Potassium 3.7 (3.5-5.1) mmol/L Chloride 97 L (98-107) mmol/L Carbon Dioxide 29 (22-30) mmol/L Anion Gap 9 mmol/L BUN 22 H (7-17) mg/dL Creatinine 0.59 (0.52-1.04) mg/dL Est GFR (CKD-EPI)AfAm >90 (>60 ml/min/1.73 sqM) Est GFR (CKD-EPI)NonAf 89 (>60 ml/min/1.73 sqM) Glucose 154 H (74-99) mg/dL Calcium 9.9 (8.4-10.2) mg/dL Total Bilirubin 0.6 (0.2-1.3) mg/dL AST 48 H (14-36) U/L ALT 26 (4-34) U/L Alkaline Phosphatase 88 (38-126) U/L Troponin I (0.000-0.034) ng/mL Total Protein 6.8 (6.3-8.2) g/dL Albumin 3.9 (3.5-5.0) g/dL Amylase 52 (30-110) U/L Lipase 107 (23-300) U/L 08/24/23 Range/Units 19:49 WBC (3.8-10.6) k/uL RBC (3.80-5.40) m/uL Hgb (11.4-16.0) gm/dL Hct (34.0-46.0) % MCV (80.0-100.0) fL MCH (25.0-35.0) pg MCHC (31.0-37.0) g/dL RDW (11.5-15.5) % Plt Count (150-450) k/uL MPV Neutrophils % % Lymphocytes % % Monocytes % % Eosinophils % % Basophils % % Neutrophils # (1.3-7.7) k/uL Lymphocytes # (1.0-4.8) k/uL Monocytes # (0-1.0) k/uL Eosinophils # (0-0.7) k/uL Basophils # (0-0.2) k/uL PT (10.0-12.5) sec INR (<1.2) APTT (22.0-30.0) sec Sodium (137-145) mmol/L Potassium (3.5-5.1) mmol/L Chloride (98-107) mmol/L Carbon Dioxide (22-30) mmol/L Anion Gap mmol/L BUN (7-17) mg/dL Creatinine (0.52-1.04) mg/dL Est GFR (CKD-EPI)AfAm (>60 ml/min/1.73 sqM) Est GFR (CKD-EPI)NonAf (>60 ml/min/1.73 sqM) Glucose (74-99) mg/dL Calcium (8.4-10.2) mg/dL Total Bilirubin (0.2-1.3) mg/dL AST (14-36) U/L ALT (4-34) U/L Alkaline Phosphatase (38-126) U/L Troponin I <0.012 (0.000-0.034) ng/mL Total Protein (6.3-8.2) g/dL Albumin (3.5-5.0) g/dL Amylase (30-110) U/L Lipase (23-300) U/L Disposition Clinical Impression: Vomiting Disposition: HOME SELF-CARE Condition: Stable Instructions (If sedation given, give patient instructions): Acute Nausea and Vomiting (ED) Additional Instructions: Prescription for nausea medicine has been sent to pharmacy. Please do follow-up with your primary care physician in the next 1 or 2 days for recheck. Return for increased pain, difficulty breathing, not tolerating fluids, worsening symptoms or other concerns. Please increase fluid intake. Prescriptions: Famotidine [Pepcid] 20 mg PO BID #30 tablet Ondansetron Odt [Zofran Odt] 4 mg PO Q8HR PRN #10 tab PRN Reason: Nausea Is patient prescribed a controlled substance at d/c from ED?: No Referrals: David De La O DO [Primary Care Provider] - 1-2 days Time of Disposition: 21:02
[2023-08-24 19:06] VITALS: TEMP 98.4
[2023-08-24 20:09] LABS: Basophils % (A) 0 %; Eosinophils # (A) 0.1 k/uL (0-0.7); Eosinophils % (A) 1 %; HGB 13.6 gm/dL (11.4-16.0); Lymphocytes # (A) 0.8 k/uL (1.0-4.8); Lymphocytes % (A) 7 %; MCH 30.1 pg (25.0-35.0); MCHC 33.9 g/dL (31.0-37.0); MCV 88.8 fL (80.0-100.0); Monocytes # (A) 0.9 k/uL (0-1.0); Monocytes % (A) 8 %; Neutrophils # (A) 9.4 k/uL (1.3-7.7); Neutrophils % (A) 83 %; Platelet Count 445 k/uL (150-450); RBC 4.51 m/uL (3.80-5.40); RDW 12.8 % (11.5-15.5); WBC 11.3 k/uL (3.8-10.6)
[2023-08-24 20:17] LABS: INR 0.9 (<1.2); Partial Thromboplastin Time 24.1 sec (22.0-30.0); Prothrombin Time 10.5 sec (10.0-12.5)
[2023-08-24] MEDS: FAMOTIDINE 20 MG/2 ML VIAL IV STA (20:18)
[2023-08-24] MEDS: ONDANSETRON 4 MG/2 ML VIAL IVP STA (20:18)
[2023-08-24] MEDS: SODIUM CHLORIDE 0.9% 1,000 ML IV STA (20:18)
--- NOTE | 2023-08-24 20:18 | XR ---
EXAMINATION TYPE: XR KUB DATE OF EXAM: 08/24/2023 8:14 PM CLINICAL INDICATION:Female, 78 years old with history of abdominal pain; [facility] COMPARISON: None. TECHNIQUE: One radiographic view of the abdomen was obtained. FINDINGS: The bowel gas pattern is nonspecific without dilated loops of small or large bowel. There i s no evidence for organomegaly or pneumoperitoneum. The osseous structures are intact. Fecal materia l and gas are demonstrated throughout the colon and rectum. IMPRESSION: Nonspecific bowel gas pattern without radiographic evidence for acute process.
[2023-08-24 20:25] LABS: ALT 26 U/L (4-34); AST 48 U/L (14-36); African American GFR (CKD) >90 (>60 ml/min/1.73 sqM); Albumin 3.9 g/dL (3.5-5.0); Alkaline Phosphatase 88 U/L (38-126); Amylase 52 U/L (30-110); Anion Gap 9 mmol/L; Blood Urea Nitrogen 22 mg/dL (7-17); Calcium 9.9 mg/dL (8.4-10.2); Carbon Dioxide 29 mmol/L (22-30); Chloride 97 mmol/L (98-107); Glucose 154 mg/dL (74-99); Lipase 107 U/L (23-300); Non-African American GFR(CKD) 89 (>60 ml/min/1.73 sqM); Potassium 3.7 mmol/L (3.5-5.1); Sodium 135 mmol/L (137-145); Total Bilirubin 0.6 mg/dL (0.2-1.3); Total Protein 6.8 g/dL (6.3-8.2)
[2023-08-24 21:49] VITALS: BP 144/78; PULSE 68; RESP 22
== END 2023-08-24 21:33 | disposition home or self-care (01) ==
LOC: EC 18:34
DX: R11.2 Nausea with vomiting, unspecified (principal); R10.13 Epigastric pain; I49.8 Other specified cardiac arrhythmias; I45.10 Unspecified right bundle-branch block; I10 Essential (primary) hypertension; E78.5 Hyperlipidemia, unspecified; F17.200 Nicotine dependence, unspecified, uncomplicated; Z79.899 Other long term (current) drug therapy; Z95.5 Presence of coronary angioplasty implant and graft
CPT/HCPCS: 36415; 80053; 82150; 83690; 84484; 85025; 85610; 85730; 74018; 99284; 96374; 96375; 96361; J2405; J3490

== ENCOUNTER 2024-01-13 11:30 | Emergency (ER) | payer MEDICARE ==
[2024-01-13 11:41] VITALS: RESP 16; TEMP 97.6
--- NOTE | 2024-01-13 12:12 | ED ---
Fall HPI - General Chief Complaint: Fall Stated Complaint: Back Pain Time Seen by Provider: 01/13/24 11:43 Source: patient, family, RN notes reviewed Mode of arrival: ambulatory Limitations: no limitations - History of Present Illness Initial Comments: 78-year-old female presents emergency department chief complaint of fall. Patient states happened several days ago which was pulmonary door states it fell onto her left foot states that she fell onto her back. Patient states that she has had back pain ever since she has been wearing her brace. Patient denies any bowel, bladder and cons retention no saddle anesthesias denies any lower extremity weakness. Denies any chest pain or shortness of breath. - Related Data Home Medications Medication Instructions Recorded Confirmed Aspirin [Adult Low Dose Aspirin EC] 81 mg PO Q2D 03/02/18 04/22/22 Atorvastatin Calcium [Lipitor] 20 mg PO HS 03/02/18 04/21/22 lisinopriL [Zestril] 20 mg PO HS 04/13/18 04/21/22 Mirtazapine 15 mg PO HS 04/21/22 04/21/22 Previous Rx's Medication Instructions Recorded HYDROcodone/APAP 5-325MG [[place] 5] 1 each PO Q6HR PRN #12 tab 07/10/23 Famotidine [Pepcid] 20 mg PO BID #30 tablet 08/24/23 Ondansetron Odt [Zofran Odt] 4 mg PO Q8HR PRN #10 tab 08/24/23 HYDROcodone/APAP 5-325MG [[place] 5] 1 each PO Q6HR PRN #12 tab 01/13/24 Allergies Allergy/AdvReac Type Severity Reaction Status Date / Time No Known Allergies Allergy Verified 08/24/23 18:43 Review of Systems ROS Statement: Those systems with pertinent positive or pertinent negative responses have been documented in the HPI. ROS Other: All systems not noted in ROS Statement are negative. Past Medical History Past Medical History: Cancer, Hyperlipidemia, Hypertension, Vascular Disorder Additional Past Medical History / Comment(s): "no pulse in feet", bladder cancer, History of Any Multi-Drug Resistant Organisms: None Reported Past Surgical History: Bladder Surgery Additional Past Surgical History / Comment(s): angiogram,Stent to rca/lad 03/05; birthmark removed from neck, tumor removed from bladder; adrian. cataracts Past Anesthesia/Blood Transfusion Reactions: No Reported Reaction Past Psychological History: No Psychological Hx Reported Smoking Status: Current every day smoker Past Alcohol Use History: Rare Past Drug Use History: None Reported - Past Family History Mother Family Medical History: No Reported History General Exam Limitations: no limitations General appearance: alert, in no apparent distress Head exam: Present: atraumatic, normocephalic, normal inspection Eye exam: Present: normal appearance, PERRL, EOMI. Absent: scleral icterus, conjunctival injection, periorbital swelling ENT exam: Present: normal exam, mucous membranes moist Neck exam: Present: normal inspection, full ROM. Absent: tenderness, meningismus, lymphadenopathy Respiratory exam: Present: normal lung sounds bilaterally. Absent: respiratory distress, wheezes, rales, rhonchi, stridor Cardiovascular Exam: Present: regular rate, normal rhythm, normal heart sounds. Absent: systolic murmur, diastolic murmur, rubs, gallop, clicks Extremities exam: Present: full ROM, tenderness (Left foot tenderness diffusely, ecchymosis noted), normal capillary refill. Absent: normal inspection, pedal edema, joint swelling, calf tenderness Back exam: Present: full ROM, tenderness, paraspinal tenderness, vertebral tenderness Course Vital Signs 01/13/24 01/13/24 11:38 14:11 Temperature 97.6 F 97.6 F Pulse Rate 93 90 Respiratory 16 16 Rate Blood Pressure 160/86 154/87 O2 Sat by Pulse 98 98 Oximetry Medical Decision Making - Medical Decision Making Was pt. sent in by a medical professional or institution (, PA, HOOD MAKER, urgent ca re, hospital, or fci...) When possible be specific @ -No Did you speak to anyone other than the patient for history (EMS, parent, family, police, friend...)? What history was obtained from this source @ -No Did you review nursing and triage notes (agree or disagree)? Why? @ -I reviewed and agree with nursing and triage notes Were old charts reviewed (outside hosp., previous admission, EMS record, old EKG, old radiological studies, urgent care reports/EKG's, fci records)? Report findings @ -No old charts were reviewed Differential Diagnosis (chest pain, altered mental status, abdominal pain women, abdominal pain men, vaginal bleeding, weakness, fever, dyspnea, syncope, headache, dizziness, GI bleed, back pain, seizure, CVA, palpatations, mental health, musculoskeletal)? @ -Differential Musculoskeletal Muscular strain, contusion, ligament sprain, fracture, arthritis, septic arthritis, bursitis, cellulitis, muscle spasm, nerve compression, DVT, arterial occlusion, herpes zoster, electrolyte abnormality, tumor.... This is not meant to be in all inclusive list EKG interpreted by me (3pts min.). @ -None X-rays interpreted by me (1pt min.). @ -X-ray right lumbar spine showing old compression fracture when compared to prior CT X-ray left foot showing distal first digit fracture CT interpreted by me (1pt min.). @ -None done U/S interpreted by me (1pt. min.). @ -None done What testing was considered but not performed or refused? (CT, X-rays, U/S, labs)? Why? @ -None What meds were considered but not given or refused? Why? @ -None Did you discuss the management of the patient with other professionals (professionals i.e. , PA, HOOD MAKER, lab, RT, psych nurse, social work specialist, pbx wire chief, teacher, legal officer, child support case officer)? Give summary @ -No Was smoking cessation discussed for >3mins.? @ -No Was critical care preformed (if so, how long)? @ -No Were there social determinants of health that impacted care today? How? (Homelessness, low income, unemployed, alcoholism, drug addiction, transportation, low edu. Level, literacy, decrease access to med. care, residential, rehab)? @ -No Was there de-escalation of care discussed even if they declined (Discuss DNR or withdrawal of care, Hospice)? DNR status @ -No What co-morbidities impacted this encounter? (DM, HTN, Smoking, COPD, CAD, Cancer, CVA, ARF, Chemo, Hep., AIDS, mental health diagnosis, sleep apnea, morbid obesity)? @ -None Was patient admitted / discharged? Hospital course, mention meds given and route, prescriptions, significant lab abnormalities, going to OR and other pertinent info. @ -Discharge patient has acute toe fracture, lumbar contusion will follow-up with orthopedic petroleum supply specialist Undiagnosed new problem with uncertain prognosis? @ -No Drug Therapy requiring intensive monitoring for toxicity (Heparin, Nitro, Insulin, Cardizem)? @ -No Were any procedures done? @ -No Diagnosis/symptom? @ -Back pain, toe fracture Acute, or Chronic, or Acute on Chronic? @ -Acute Uncomplicated (without systemic symptoms) or Complicated (systemic symptoms)? @ -Uncomplicated Side effects of treatment? @ -No Exacerbation, Progression, or Severe Exacerbation? @ -No Poses a threat to life or bodily function? How? (Chest pain, [place], [place], pneumonia, PE, COPD, DKA, ARF, appy, cholecystitis, CVA, Diverticulitis, Homicidal, Suicidal, threat to staff... and all critical care pts) @ -No Disposition Clinical Impression: Fall, Back pain, Toe fracture, left Disposition: HOME SELF-CARE Condition: Stable Instructions (If sedation given, give patient instructions): Back Pain (ED) Additional Instructions: Please return to the Emergency Department if symptoms worsen or any other concerns. Prescriptions: HYDROcodone/APAP 5-325MG [[place] 5] 1 each PO Q6HR PRN #12 tab PRN Reason: Pain Is patient prescribed a controlled substance at d/c from ED?: Yes When asked, does pt state using other controlled substances?: No If prescribed controlled substance>3 days was MAPS reviewed?: Prescribed <3 Days If opioid is for acute pain is fill amount 7 days or less?: Yes If Rx opioid, was Start Talking consent form obtained?: Yes Referrals: David De La O DO [Primary Care Provider] - 1-2 days Time of Disposition: 13:34
--- NOTE | 2024-01-13 12:24 | XR ---
EXAMINATION TYPE: XR foot complete LT DATE OF EXAM: 01/13/2024 CLINICAL HISTORY: pain TECHNIQUE: Frontal, lateral and oblique images of the left foot are obtained. COMPARISON: None. FINDINGS: Minimally comminuted minimally displaced fracture involving the subungual tuft stenting to the base of the distal phalanx left first digit without intra-articular extension. No additional frac ture seen. The joint spaces appear within normal limits. Soft tissue swelling suggested. IMPRESSION: Fracture as above
--- NOTE | 2024-01-13 12:27 | XR ---
EXAMINATION TYPE: XR lumbar spine 2 or 3V DATE OF EXAM: 01/13/2024 CLINICAL HISTORY: pain TECHNIQUE: Three views of the lumbar spine are submitted. COMPARISON: 07/10/2023 FINDINGS: Chronic fracture of L1 with loss of height estimated at greater than 60%. Mild loss of height superio r endplate of L4 and L5 which has occurred since prior study however is of uncertain age and/or etiol ogy. The remaining lumbar segments are grossly intact. Moderate multilevel degenerative disc space na rrowing. Severe facet joint arthropathy. No evidence for malalignment. IMPRESSION: Very mild loss of height superior endplate of L4 and L5 of uncertain age and/or etiology. Chronic los s of height of L1.
[2024-01-13 14:13] VITALS: BP 154/87; PULSE 90
== END 2024-01-13 14:12 | disposition home or self-care (01) ==
LOC: EC 11:30
DX: S92.912A Unspecified fracture of left toe(s), initial encounter for closed fracture (principal); M54.50 Low back pain, unspecified; F17.200 Nicotine dependence, unspecified, uncomplicated; W18.30XA Fall on same level, unspecified, initial encounter
CPT/HCPCS: 72100; 99283

== ENCOUNTER 2024-07-07 17:12 | Emergency (ER) | payer MEDICARE ==
[2024-07-07 17:32] VITALS: TEMP 98.7
--- NOTE | 2024-07-07 17:34 | ED ---
Back Pain HPI - General Source: patient, family, RN notes reviewed Mode of arrival: wheelchair Limitations: no limitations - History of Present Illness MD Complaint: back pain, back injury Onset/Timin -: days(s) Radiation: none Severity scale (1-10): 9 <Chago Hernández - Last Filed: 07/07/24 17:32> - General Source: patient, family, RN notes reviewed, old records reviewed <Deven Carlton - Last Filed: 07/07/24 20:59> - General Stated Complaint: BACK PAIN Time Seen by Provider: 07/07/24 17:26 - History of Present Illness Initial Comments: Quick note: This is a 79-year-old female with history of back pain presenting with mid back pain (03/28) following heavy lifting groceries on Wednesday. Patient states she attempted lifting cases of beer and [employer] potato into her car while grocery shopping, injuring her back at the time. States she tried to deal with the pain but it has been progressively worsening, stating she is in need of pain medication. Patient denies radiculopathy, paresthesia, saddle paresthesia, urinary incontinence/retention, urinary symptoms. (Chago Hernández) Patient is a 79-year-old female presents emergency department complaining of back pain. Patient states that she twisted wrong on Wednesday and experienced acute on chronic back pain. States it does not radiate. It is located along the thoracic and lumbar spines midline. Symptoms has not improved. Denies any saddle paresthesias. Denies any lower extremity paralysis. Denies any urinary or bowel incontinence or retention. Has no other injuries. Presents for further evaluation. Originally seen as a quick note. I evaluated patient when she was placed in a room. (Deven Carlton) - Related Data Home Medications Medication Instructions Recorded Confirmed Aspirin [Adult Low Dose Aspirin EC] 81 mg PO Q2D 03/02/18 04/22/22 Atorvastatin Calcium [Lipitor] 20 mg PO HS 03/02/18 04/21/22 lisinopriL [Zestril] 20 mg PO HS 04/13/18 04/21/22 Mirtazapine 15 mg PO HS 04/21/22 04/21/22 Previous Rx's Medication Instructions Recorded HYDROcodone/APAP 5-325MG [[place] 5] 1 each PO Q6HR PRN #12 tab 07/10/23 Famotidine [Pepcid] 20 mg PO BID #30 tablet 08/24/23 Ondansetron Odt [Zofran Odt] 4 mg PO Q8HR PRN #10 tab 08/24/23 HYDROcodone/APAP 5-325MG [[place] 5] 1 each PO Q6HR PRN #12 tab 01/13/24 Cyclobenzaprine [Flexeril] 5 mg PO TID PRN 7 Days #21 tablet 07/07/24 HYDROcodone/APAP 5-325MG [[place] 1 tab PO Q6HR PRN 3 Days #12 tab 07/07/24 5-325] Allergies Allergy/AdvReac Type Severity Reaction Status Date / Time No Known Allergies Allergy Verified 07/07/24 17:27 Review of Systems ROS Other: All systems not noted in ROS Statement are negative. <Chago Hernández - Last Filed: 07/07/24 17:32> ROS Other: All systems not noted in ROS Statement are negative. <Deven Carlton - Last Filed: 07/07/24 20:59> ROS Statement: Those systems with pertinent positive or pertinent negative responses have been documented in the HPI. Review of Systems: CONST: Denies fever EYES: Denies blurry vision ENT: Denies nasal congestion C/V: Denies Chest pain RESP: Denies shortness of breath GI: Denies abdominal pain : Denies dysuria SKIN: Denies rash. MSK: Endorses back pain NEURO: Denies headache (Deven Carlton) Past Medical History Past Medical History: Cancer, Hyperlipidemia, Hypertension, Vascular Disorder Additional Past Medical History / Comment(s): "no pulse in feet", bladder cancer, History of Any Multi-Drug Resistant Organisms: None Reported Past Surgical History: Bladder Surgery Additional Past Surgical History / Comment(s): angiogram,Stent to rca/lad 03/05; birthmark removed from neck, tumor removed from bladder; adrian. cataracts Past Anesthesia/Blood Transfusion Reactions: No Reported Reaction Past Psychological History: No Psychological Hx Reported Smoking Status: Current every day smoker Past Alcohol Use History: Rare Past Drug Use History: None Reported - Past Family History Mother Family Medical History: No Reported History <Chago Hernández - Last Filed: 07/07/24 17:32> General Exam Limitations: no limitations <Chago Hernández - Last Filed: 07/07/24 17:32> <Deven Carlton - Last Filed: 07/07/24 20:59> - General Exam Comments Initial Comments: Visual Physical Exam Vital signs reviewed General: Well-appearing, nontoxic, no acute distress. Patient seated in wheelchair Head: Normocephalic, atraumatic Eyes: PERRLA, EOMI ENT: Airway patent Chest: Nonlabored breathing Skin: No visual rash, normal skin tone Neuro: Alert and oriented 3 Musculoskeletal: No gross abnormalities (Chago Hernández) General: Appears in no acute distress. HEAD: Normal with no signs of head trauma. EYES: EOMI. ENT: Hearing grossly intact. RESPIRATORY: No respiratory distress. C/V: Regular rate and rhythm. ABD: Abdomen is nondistended. EXT: No obvious deformity. Mild midline thoracic and lumbar spine tenderness to palpation. No obvious step-offs or deformities. Paraspinal muscles tender along this path as well. SKIN: No rashes or lesions observed on exposed skin. NEURO: Alert and oriented. (Deven Carlton) Course Vital Signs 07/07/24 07/07/24 17:28 19:52 Temperature 98.7 F Pulse Rate 99 71 Respiratory 18 20 Rate Blood Pressure 165/86 152/92 O2 Sat by Pulse 100 96 Oximetry Medical Decision Making <Chago Hernández - Last Filed: 07/07/24 17:32> <Deven Carlton - Last Filed: 07/07/24 20:59> - Medical Decision Making I completed the quick note portion of this chart signed GLORIA Goodwin (Chago Hernández) Was pt. sent in by a medical professional or institution (CHARLIE Loco, [employer]OW[employer] MACHINE OPERATOR, urgent care, hospital, or prison...) When possible be specific @ -No Did you speak to anyone other than the patient for history (EMS, parent, family, police, friend...)? What history was obtained from this source @ -No Did you review nursing and triage notes (agree or disagree)? Why? @ -I reviewed and agree with nursing and triage notes Were old charts reviewed (outside hosp., previous admission, EMS record, old EKG, old radiological studies, urgent care reports/EKG's, prison records)? Report findings @ -No old charts were reviewed Differential Diagnosis (chest pain, altered mental status, abdominal pain women, abdominal pain men, vaginal bleeding, weakness, fever, dyspnea, syncope, headache, dizziness, GI bleed, back pain, seizure, CVA, palpatations, mental health, musculoskeletal)? @ -Differential Musculoskeletal Muscular strain, contusion, ligament sprain, fracture, arthritis, septic arthritis, bursitis, cellulitis, muscle spasm, nerve compression, DVT, arterial occlusion, herpes zoster, electrolyte abnormality, tumor.... This is not meant to be in all inclusive list EKG interpreted by me (3pts min.). @ -None done X-rays interpreted by me (1pt min.). @ -Thoracic and lumbar spine x-rays reveal chronic impression deformities throughout both spine areas. Degenerative changes as well. No obvious acute process. CT interpreted by me (1pt min.). @ -None done U/S interpreted by me (1pt. min.). @ -None done What testing was considered but not performed or refused? (CT, X-rays, U/S, labs)? Why? @ -None What meds were considered but not given or refused? Why? @ -None Did you discuss the management of the patient with other professionals (professionals i.e. , PA, [employer] MACHINE OPERATOR, lab, RT, psych nurse, psychiatric social worker supervisor, reimbursement manager, teacher, payroll officer, home health care case manager)? Give summary @ -No Was smoking cessation discussed for >3mins.? @ -No Was critical care preformed (if so, how long)? @ -No Were there social determinants of health that impacted care today? How? (Homelessness, low income, unemployed, alcoholism, drug addiction, transportation, low edu. Level, literacy, decrease access to med. care, alf, rehab)? @ -No Was there de-escalation of care discussed even if they declined (Discuss DNR or withdrawal of care, Hospice)? DNR status @ -No What co-morbidities impacted this encounter? (DM, HTN, Smoking, COPD, CAD, Cancer, CVA, ARF, Chemo, Hep., AIDS, mental health diagnosis, sleep apnea, morbid obesity)? @ -None Was patient admitted / discharged? Hospital course, mention meds given and route, prescriptions, significant lab abnormalities, going to OR and other pertinent info. @ -Based on the patient's presentation and physical exam, presents with back pain. This is acute on chronic. X-rays obtained as patient was originally quick note. X-rays negative for any obvious acute process but does show chronic degenerative changes as well as chronic compression deformities of the thoracic and lumbar spines. No concern for cauda equina syndrome at this time. I discussed results with the patient. Patient will be started on analgesia medications and given a prescription for analgesia medications. Recommended follow-up with orthopedic receivables specialist. She was in agreement this plan. Strict return precautions discussed. I will provide the patient with a prescription for [place] 5, Flexeril. I instructed the patient to follow up with their PCP in the next 1-3 days. I provided contact information for follow up with orthopedics. I explained that the patient should return to the emergency department if they experience any worsening symptoms. Strict return precautions were discussed with the patient. The patient expressed understanding of these instructions. I answered all questions that the patient had. The patient was discharged home in good condition with their prescriptions and follow up information. Undiagnosed new problem with uncertain prognosis? @ -No Drug Therapy requiring intensive monitoring for toxicity (Heparin, Nitro, Insulin, Cardizem)? @ -No Were any procedures done? @ -No Diagnosis/symptom? @ -Thoracic and lumbar spine compression deformity fractures appear to be chronic. Muscle strain. Acute, or Chronic, or Acute on Chronic? @ -Acute on chronic Uncomplicated (without systemic symptoms) or Complicated (systemic symptoms)? @ -Uncomplicated Side effects of treatment? @ -No Exacerbation, Progression, or Severe Exacerbation? @ -No Poses a threat to life or bodily function? How? (Chest pain, [place], [place], pneumonia, PE, COPD, DKA, ARF, appy, cholecystitis, CVA, Diverticulitis, Homicidal, Suicidal, threat to staff... and all critical care pts) @ -No (Deven Carlton) Disposition <Chago Hernández - Last Filed: 07/07/24 17:32> Is patient prescribed a controlled substance at d/c from ED?: No Time of Disposition: 19:20 <Deven Carlton - Last Filed: 07/07/24 20:59> Clinical Impression: Compression fracture of body of thoracic vertebra, Compression fracture of lumbar vertebra, Muscle strain Disposition: ADMITTED IP TO THIS HOSP Condition: Stable Instructions (If sedation given, give patient instructions): Acute Low Back Pain (ED) Prescriptions: Cyclobenzaprine [Flexeril] 5 mg PO TID PRN 7 Days #21 tablet PRN Reason: Pain HYDROcodone/APAP 5-325MG [[place] 5-325] 1 tab PO Q6HR PRN 3 Days #12 tab PRN Reason: Pain Referrals: David De La O DO [Primary Care Provider] - 1-2 days Wilfredo Fabian DO [Doctor of Osteopathic Medicine] - 1-2 days
--- NOTE | 2024-07-07 18:39 | XR ---
EXAMINATION TYPE: XR lumbar spine 2 or 3V, XR thoracic spine 2V DATE OF EXAM: 07/07/2024 6:15 PM COMPARISON: 01/13/2024 CLINICAL INDICATION: Female, 79 years old with history of Back strain after heavy lifting; PHH, pain TECHNIQUE: XR lumbar spine 2 or 3V, XR thoracic spine 2V - Frontal, lateral and coned in L5-S1 latera l views of the spine. FINDINGS: No evidence of any acute osseous pathology. Similar loss of height of the L4 vertebral body compared to prior also of the L1 vertebral body as well as throughout the thoracic spine with increa sed kyphosis of the thoracic spine. Multilevel marginal osteophyte formation throughout the visualize d spine. There is facet joint arthropathy throughout the spine. Scattered at least mild and moderate neural foraminal stenosis. IMPRESSION: 1. Compression deformity of L1 and L4 and throughout multiple levels of the thoracic spine, similar t o prior no definitive new fractures. 2. 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 [facility], , 07/07/2024 6:37 PM
[2024-07-07] MEDS: KETOROLAC 15 MG/ML 1 ML VIAL IM STA (18:44)
[2024-07-07] MEDS: KETOROLAC 15 MG/ML 1 ML VIAL IVP STA (19:39)
[2024-07-07] MEDS: ACET/COD 300 MG/30 MG STARTER PACK 6 TAB BTL PO STA (19:44)
[2024-07-07] MEDS: HYDROcodone/APAP 5-325MG 1 EACH TAB PO STA (19:45)
[2024-07-07] MEDS: methylPREDNISolone SOD SUCCI 125 MG/2 ML VIAL IM ONE (19:45)
[2024-07-07 20:00] VITALS: BP 152/92; PULSE 71; RESP 20
== END 2024-07-07 19:52 | disposition other institution (70) ==
LOC: EC 17:12
DX: M48.56XA Collapsed vertebra, not elsewhere classified, lumbar region, initial encounter for fracture (principal); M48.54XA Collapsed vertebra, not elsewhere classified, thoracic region, initial encounter for fracture; T14.8XXA Other injury of unspecified body region, initial encounter; F17.200 Nicotine dependence, unspecified, uncomplicated; Y93.9 Activity, unspecified
CPT/HCPCS: 72070; 72100; 99284; 96372; J1885; J2919

== ENCOUNTER 2024-07-15 17:25 | Emergency (ER) | payer MEDICARE ==
[2024-07-15 17:36] VITALS: PULSE 53; RESP 22; TEMP 98.3
--- NOTE | 2024-07-15 17:48 | ED ---
Nausea/Vomiting/Diarrhea HPI - General Source: patient, RN notes reviewed Mode of arrival: ambulatory Limitations: no limitations - History of Present Illness MD complaint: nausea, vomiting Onset/Timin -: days(s) <Chago Hernández - Last Filed: 07/15/24 17:49> <KimVelasquez - Last Filed: 07/16/24 00:50> - General Source: patient, RN notes reviewed, old records reviewed Mode of arrival: ambulatory Limitations: no limitations - History of Present Illness MD complaint: nausea, vomiting, diarrhea -: days(s) Radiation: none Severity: moderate Severity scale (1-10): 5 Quality: cramping, aching Consistency: constant Improves with: none Worsens with: none Associated Symptoms: loss of appetite, nausea/vomiting, weakness <Ramu Álvarez - Last Filed: 07/19/24 17:46> - General Chief complaint: Nausea/Vomiting/Diarrhea Stated complaint: Vomiting Time Seen by Provider: 07/15/24 17:40 - History of Present Illness Initial comments: Quick note: This is a 79-year-old female with history of bladder CA and vascular disease presenting with nausea/vomiting x 3 days. Endorses subsequent dizziness and decreased appetite due to concern of subsequent vomiting. States recently tested positive for COVID. Denies fever, chills, chest pain, dyspnea, abdominal pain, diarrhea, constipation, hematemesis. (Chago Hernández) This is a 79 female history of CVA coming with nausea vomiting for the last 3 days unable to keep anything down feels weak (Ramu Álvarez) - Related Data Home Medications Medication Instructions Recorded Confirmed Aspirin [Adult Low Dose Aspirin EC] 81 mg PO Q2D 03/02/18 04/22/22 Atorvastatin Calcium [Lipitor] 20 mg PO HS 03/02/18 04/21/22 lisinopriL [Zestril] 20 mg PO HS 04/13/18 04/21/22 Mirtazapine 15 mg PO HS 04/21/22 04/21/22 Previous Rx's Medication Instructions Recorded HYDROcodone/APAP 5-325MG [[employer] 5] 1 each PO Q6HR PRN #12 tab 07/10/23 Famotidine [Pepcid] 20 mg PO BID #30 tablet 08/24/23 Ondansetron Odt [Zofran Odt] 4 mg PO Q8HR PRN #10 tab 08/24/23 HYDROcodone/APAP 5-325MG [[employer] 5] 1 each PO Q6HR PRN #12 tab 01/13/24 Cyclobenzaprine [Flexeril] 5 mg PO TID PRN 7 Days #21 tablet 07/07/24 HYDROcodone/APAP 5-325MG [[employer] 1 tab PO Q6HR PRN 3 Days #12 tab 07/07/24 5-325] Allergies Allergy/AdvReac Type Severity Reaction Status Date / Time No Known Allergies Allergy Verified 07/15/24 17:35 Review of Systems ROS Other: All systems not noted in ROS Statement are negative. <Chago Hernández - Last Filed: 07/15/24 17:49> ROS Other: All systems not noted in ROS Statement are negative. <Velasquez Alvarez - Last Filed: 07/16/24 00:50> ROS Other: All systems not noted in ROS Statement are negative. <Ramu Álvarez - Last Filed: 07/19/24 17:46> ROS Statement: Those systems with pertinent positive or pertinent negative responses have been documented in the HPI. Past Medical History Past Medical History: Cancer, Hyperlipidemia, Hypertension, Vascular Disorder Additional Past Medical History / Comment(s): "no pulse in feet", bladder cancer, History of Any Multi-Drug Resistant Organisms: None Reported Past Surgical History: Bladder Surgery Additional Past Surgical History / Comment(s): angiogram,Stent to rca/lad 03/05; birthmark removed from neck, tumor removed from bladder; adrian. cataracts Past Anesthesia/Blood Transfusion Reactions: No Reported Reaction Past Psychological History: No Psychological Hx Reported Smoking Status: Current every day smoker Past Alcohol Use History: Rare Past Drug Use History: None Reported - Past Family History Mother Family Medical History: No Reported History <Chago Hernández - Last Filed: 07/15/24 17:49> General Exam Limitations: no limitations <Chago Hernández - Last Filed: 07/15/24 17:49> General appearance: alert, in no apparent distress Head exam: Present: atraumatic, normocephalic, normal inspection Eye exam: Present: normal appearance, PERRL, EOMI. Absent: scleral icterus, conjunctival injection, periorbital swelling ENT exam: Present: normal exam, mucous membranes moist Neck exam: Present: normal inspection. Absent: tenderness, meningismus, lymphadenopathy Respiratory exam: Present: normal lung sounds bilaterally. Absent: respiratory distress, wheezes, rales, rhonchi, stridor Cardiovascular Exam: Present: regular rate, normal rhythm, normal heart sounds. Absent: systolic murmur, diastolic murmur, rubs, gallop, clicks GI/Abdominal exam: Present: tenderness, guarding, normal bowel sounds. Absent: distended, rebound, rigid Extremities exam: Present: normal inspection, full ROM, normal capillary refill. Absent: tenderness, pedal edema, joint swelling, calf tenderness Back exam: Present: normal inspection Neurological exam: Present: alert, oriented X3, CN II-XII intact Psychiatric exam: Present: normal affect, normal mood Skin exam: Present: warm, dry, intact, normal color. Absent: rash <Ramu Álvarez - Last Filed: 07/19/24 17:46> - General Exam Comments Initial Comments: Visual Physical Exam Vital signs reviewed General: Well-appearing, nontoxic, no acute distress. Seated in wheelchair holding basin Head: Normocephalic, atraumatic Eyes: PERRLA, EOMI ENT: Airway patent Chest: Nonlabored breathing Skin: No visual rash, normal skin tone Neuro: Alert and oriented 3 Musculoskeletal: No gross abnormalities (Chago Hernández) Course <Ramu Álvarez - Last Filed: 07/19/24 17:46> Vital Signs 07/15/24 07/16/24 17:33 01:13 Temperature 98.3 F Pulse Rate 53 L Respiratory 22 Rate Blood Pressure 167/84 170/81 O2 Sat by Pulse 97 Oximetry - Reevaluation(s) Reevaluation #1: 07/15/24 21:32 Medical records reviewed (Ramu Álvarez) Reevaluation #2: Patient symptoms improved here in the ER (Ramu Álvarez) Reevaluation #3: Patient informed of results and questions answered (Ramu Álvarez) Reevaluation #4: Was pt. sent in by a medical professional or institution (, PA, [employer], urgent care, hospital, or fdc...) When possible be specific @ -no Did you speak to anyone other than the patient for history (EMS, parent, family, police, friend...)? What history was obtained from this source @ -no Did you review nursing and triage notes (agree or disagree)? Why? @ -agree Are old charts reviewed (outside hosp., previous admission, EMS record, old EKG, old radiological studies, urgent care reports/EKG's, fdc records)? Report findings @ -yes Differential Diagnosis (chest pain, altered mental status, abdominal pain women, abdominal pain men, vaginal bleeding, weakness, fever, dyspnea, syncope, headache, dizziness, GI bleed, back pain, seizure, CVA, palpatations, mental health, musculoskeletal)? @ -prior EKG interpreted by me (3pts min.). @ -yes X-rays interpreted by me (1pt min.). @ -yes negative for acute disease CT interpreted by me (1pt min.). @ -yes negative for acute disease U/S interpreted by me (1pt. min.). @ -no What testing was considered but not performed or refused? (CT, X-rays, U/S, labs)? Why? @ -none What meds were considered but not given or refused? Why? @ -none Did you discuss the management of the patient with other professionals (professionals i.e. , PA, [employer], lab, RT, psych nurse, nephrology social worker, home support worker, teacher, dental officer, protective services case worker)? Give summary @ -no Was smoking cessation discussed for >3mins.? @ -no Was critical care preformed (if so, how long)? @ -no Were there social determinants of health that impacted care today? How? (Homelessness, low income, unemployed, alcoholism, drug addiction, transportation, low edu. Level, literacy, decrease access to med. care, [place] [facility], rehab)? @ -none Was there de-escalation of care discussed even if they declined (Discuss DNR or withdrawal of care, Hospice)? DNR status @ -no What co-morbidities impacted this encounter? (DM, HTN, Smoking, COPD, CAD, Cancer, CVA, ARF, Chemo, Hep., AIDS, mental health diagnosis, sleep apnea, morbid obesity)? @ -none Was patient admitted / discharged? Hospital course, mention meds given and route, prescriptions, significant lab abnormalities, going to OR and other pertinent info. @ - 79 female with abdominal pain, generalized pain and some chest pain epigastric pain. No acute findings here in the ER patient feels well and can be discharged home Discharge Undiagnosed new problem with uncertain prognosis? @ -no Drug Therapy requiring intensive monitoring for toxicity (Heparin, Nitro, Insulin, Cardizem)? @ -no Were any procedures done? @ -no Diagnosis/symptom? @ -Abdominal pain chest pain epigastric pain Acute, or Chronic, or Acute on Chronic? @ -Acute Uncomplicated (without systemic symptoms) or Complicated (systemic symptoms)? @ -Complicated Side effects of treatment? @ -no Exacerbation, Progression, or Severe Exacerbation? @ -exacerbation Poses a threat to life or bodily function? How? (Chest pain, USA, VT, pneumonia, PE, COPD, DKA, ARF, appy, cholecystitis, CVA, Diverticulitis, Homicidal, Suicidal, threat to staff... and all critical care pts) @ -yes extremes of age (Ramu Álvarez) Reevaluation #5: Differential Weakness: Hypoglycemia, shock, sepsis, hyponatremia, anemia, infection, VT, ETOH, adverse medicine reaction, overdose, stroke, this is not meant to be an all-inclusive list. (Ramu Álvarez) Medical Decision Making <Chago Hernández - Last Filed: 07/15/24 17:49> - Lab Data Result diagrams: 07/15/24 18:09 07/15/24 18:09 <Velasquez Alvarez - Last Filed: 07/16/24 00:50> - Lab Data Result diagrams: 07/15/24 18:09 07/15/24 18:09 - EKG Data -: EKG Interpreted by Me (EKG is A-fib with RVR 107 QRS 70 QTc 465) - Radiology Data Radiology results: report reviewed (Chest x-ray CT abdomen pelvis negative for acute disease), image reviewed <Ramu Álvarez - Last Filed: 07/19/24 17:46> - Medical Decision Making I completed the quick note portion of this chart signed GLORIA Goodwin (Chago Hernández) 79 female with abdominal pain, generalized pain and some chest pain epigastric pain. No acute findings here in the ER patient feels well and can be discharged home (Ramu Álvarez) - Lab Data Lab Results 07/15/24 07/15/24 07/15/24 Range/Units 18:09 18:09 18:09 WBC 15.2 H (3.8-10.6) k/uL RBC 5.06 (3.80-5.40) m/uL Hgb 15.3 (11.4-16.0) gm/dL Hct 45.2 (34.0-46.0) % MCV 89.4 (80.0-100.0) fL MCH 30.2 (25.0-35.0) pg MCHC 33.8 (31.0-37.0) g/dL RDW 12.8 (11.5-15.5) % Plt Count 382 (150-450) k/uL MPV 8.4 Neutrophils % 86 % Lymphocytes % 6 % Monocytes % 7 % Eosinophils % 0 % Basophils % 0 % Neutrophils # 13.1 H (1.3-7.7) k/uL Lymphocytes # 0.9 L (1.0-4.8) k/uL Monocytes # 1.0 (0-1.0) k/uL Eosinophils # 0.1 (0-0.7) k/uL Basophils # 0.0 (0-0.2) k/uL PT 10.6 (10.0-12.5) sec INR 0.9 (<1.2) APTT 23.3 (22.0-30.0) sec Sodium 134 L (137-145) mmol/L Potassium 4.4 (3.5-5.1) mmol/L Chloride 91 L (98-107) mmol/L Carbon Dioxide 28 (22-30) mmol/L Anion Gap 15 mmol/L BUN 21 H (7-17) mg/dL Creatinine 0.70 (0.52-1.04) mg/dL Est GFR (CKD-EPI)AfAm >90 (>60 ml/min/1.73 sqM) Est GFR (CKD-EPI)NonAf 83 (>60 ml/min/1.73 sqM) Glucose 129 H (74-99) mg/dL Plasma Lactic Acid Peter (0.7-2.0) mmol/L Calcium 11.6 H (8.4-10.2) mg/dL Total Bilirubin 1.2 (0.2-1.3) mg/dL AST 21 (14-36) U/L ALT 10 (4-34) U/L Alkaline Phosphatase 92 (38-126) U/L Troponin I (0.000-0.034) ng/mL Total Protein 7.9 (6.3-8.2) g/dL Albumin 4.9 (3.5-5.0) g/dL Amylase 48 (30-110) U/L Lipase 50 (23-300) U/L Influenza Type A (PCR) (Not Detectd) Influenza Type B (PCR) (Not Detectd) RSV (PCR) (Not Detectd) SARS-CoV-2 (PCR) (Not Detectd) 07/15/24 07/15/24 07/15/24 Range/Units 18:09 18:09 18:09 WBC (3.8-10.6) k/uL RBC (3.80-5.40) m/uL Hgb (11.4-16.0) gm/dL Hct (34.0-46.0) % MCV (80.0-100.0) fL MCH (25.0-35.0) pg MCHC (31.0-37.0) g/dL RDW (11.5-15.5) % Plt Count (150-450) k/uL MPV Neutrophils % % Lymphocytes % % Monocytes % % Eosinophils % % Basophils % % Neutrophils # (1.3-7.7) k/uL Lymphocytes # (1.0-4.8) k/uL Monocytes # (0-1.0) k/uL Eosinophils # (0-0.7) k/uL Basophils # (0-0.2) k/uL PT (10.0-12.5) sec INR (<1.2) APTT (22.0-30.0) sec Sodium (137-145) mmol/L Potassium (3.5-5.1) mmol/L Chloride (98-107) mmol/L Carbon Dioxide (22-30) mmol/L Anion Gap mmol/L BUN (7-17) mg/dL Creatinine (0.52-1.04) mg/dL Est GFR (CKD-EPI)AfAm (>60 ml/min/1.73 sqM) Est GFR (CKD-EPI)NonAf (>60 ml/min/1.73 sqM) Glucose (74-99) mg/dL Plasma Lactic Acid Peter 1.4 (0.7-2.0) mmol/L Calcium (8.4-10.2) mg/dL Total Bilirubin (0.2-1.3) mg/dL AST (14-36) U/L ALT (4-34) U/L Alkaline Phosphatase (38-126) U/L Troponin I <0.012 (0.000-0.034) ng/mL Total Protein (6.3-8.2) g/dL Albumin (3.5-5.0) g/dL Amylase (30-110) U/L Lipase (23-300) U/L Influenza Type A (PCR) Not Detected (Not Detectd) Influenza Type B (PCR) Not Detected (Not Detectd) RSV (PCR) Not Detected (Not Detectd) SARS-CoV-2 (PCR) Not Detected (Not Detectd) Disposition <Chago Hernández - Last Filed: 07/15/24 17:49> Is patient prescribed a controlled substance at d/c from ED?: No <Velasquez Alvarez - Last Filed: 07/16/24 00:50> Is patient prescribed a controlled substance at d/c from ED?: No Time of Disposition: 01:00 <Ramu Álvarez - Last Filed: 07/19/24 17:46> Clinical Impression: Abdominal pain, Chest pain, Epigastric pain Disposition: HOME SELF-CARE Condition: Good Instructions (If sedation given, give patient instructions): Abdominal Pain (ED) Referrals: David De La O DO [Primary Care Provider] - 1-2 days
--- NOTE | 2024-07-15 18:15 | XR ---
EXAMINATION TYPE: XR chest 2V DATE OF EXAM: 07/15/2024 5:53 PM COMPARISON: Chest radiographs from 11/30/2018. CLINICAL INDICATION: Female, 79 years old with history of Dizzy; [facility] TECHNIQUE: XR chest 2V Frontal and lateral views of the chest. FINDINGS: Lungs/Pleura: There is flattening of the diaphragm with increased lucency of the lungs. No evidence o f pneumothorax, pleural effusion or focal consolidation. Pulmonary vascularity: Unremarkable. Heart/mediastinum: Cardiac size is normal. Musculoskeletal: No acute osseous pathology. Multilevel wedge compression deformities in the midthora cic spine which is more superiorly has increased from prior exam on 11/30/2018. IMPRESSION: 1. No acute cardiopulmonary disease process. 2. COPD changes. 3. Wedge compression deformities in the midthoracic spine one of which is increased from prior on 11/16. Correlate back pain. [facility], , 07/15/2024 6:12 PM
[2024-07-15 18:38] LABS: Basophils % (A) 0 %; Eosinophils # (A) 0.1 k/uL (0-0.7); Eosinophils % (A) 0 %; HCT 45.2 % (34.0-46.0); HGB 15.3 gm/dL (11.4-16.0); Lymphocytes # (A) 0.9 k/uL (1.0-4.8); Lymphocytes % (A) 6 %; MCH 30.2 pg (25.0-35.0); MCHC 33.8 g/dL (31.0-37.0); MCV 89.4 fL (80.0-100.0); Mean Platelet Volume 8.4; Monocytes % (A) 7 %; Neutrophils # (A) 13.1 k/uL (1.3-7.7); Neutrophils % (A) 86 %; Platelet Count 382 k/uL (150-450); RBC 5.06 m/uL (3.80-5.40); RDW 12.8 % (11.5-15.5); WBC 15.2 k/uL (3.8-10.6)
[2024-07-15 18:56] LABS: ALT 10 U/L (4-34); AST 21 U/L (14-36); African American GFR (CKD) >90 (>60 ml/min/1.73 sqM); Albumin 4.9 g/dL (3.5-5.0); Alkaline Phosphatase 92 U/L (38-126); Amylase 48 U/L (30-110); Anion Gap 15 mmol/L; Blood Urea Nitrogen 21 mg/dL (7-17); Calcium 11.6 mg/dL (8.4-10.2); Carbon Dioxide 28 mmol/L (22-30); Chloride 91 mmol/L (98-107); Glucose 129 mg/dL (74-99); Lipase 50 U/L (23-300); Non-African American GFR(CKD) 83 (>60 ml/min/1.73 sqM); Potassium 4.4 mmol/L (3.5-5.1); Sodium 134 mmol/L (137-145); Total Bilirubin 1.2 mg/dL (0.2-1.3); Total Protein 7.9 g/dL (6.3-8.2)
[2024-07-15 19:00] LABS: INR 0.9 (<1.2); Partial Thromboplastin Time 23.3 sec (22.0-30.0); Prothrombin Time 10.6 sec (10.0-12.5)
--- NOTE | 2024-07-15 23:40 | CT ---
EXAMINATION TYPE: CT abdomen pelvis w con CT DLP: 418 mGycm, Automated exposure control for dose reduction was used. DATE OF EXAM: 07/15/2024 11:19 PM COMPARISON: CT abdomen pelvis 12/21/2017 CLINICAL INDICATION:Female, 79 years old with history of pain; Pt states has been vomiting for over 2 days, now feeling dizzy. TECHNIQUE: Standard CT of the abdomen and pelvis following the administration of 100 cc of Isovue 3 00 IV contrast material. Coronal and sagittal reformats were performed. FINDINGS: LOWER CHEST: Linear scarring or atelectasis within the bilateral lower lobes. Couple of right lower l obe stable pulmonary micronodules dating back to his maintaining considered benign. Mild cardiomegaly . ABDOMEN LIVER: Unremarkable GALLBLADDER AND BILE DUCTS: Unremarkable. PANCREAS: Unremarkable. SPLEEN: Unremarkable. ADRENAL GLANDS: Unremarkable. KIDNEYS AND URETERS: No evidence of hydronephrosis. The kidneys enhance symmetrically. Bilateral favo red renal vascular calcifications. Contrast is demonstrated within both collecting systems on the del ayed phase. PELVIS BLADDER: Unremarkable REPRODUCTIVE: Unremarkable. ABDOMEN & PELVIS STOMACH AND BOWEL: Moderate to large size hiatal hernia containing a third of the stomach intrathorac ic.Distal colonic diverticulosis without evidence for acute diverticulitis. Moderate amount stool is present within the proximal right colon. The appendix is within normal limits. No focal bowel wall th ickening or surrounding inflammatory changes. No pneumatosis. No evidence of bowel obstruction. PERITONEUM: No evidence of pneumoperitoneum or free fluid. VASCULATURE: Moderate atherosclerotic calcifications are present throughout the abdominal aorta and i ts branches. No evidence of aortic aneurysm. Moderate to severe stenosis at the origin of the left co mmon iliac artery secondary to calcified plaque. Pelvic phleboliths. MUSCULOSKELETAL: No acute osseous abnormalities. Diffuse bone demineralization. Redemonstration of mu ltilevel compression deformities involving the L1 and L4 vertebral bodies. Prominent sclerosis involv ing the inferior endplate of the L5 vertebral body and superior endplate of the T12 vertebral body. M ultilevel degenerative disc disease and facet arthropathy. LYMPH NODES: No evidence for lymphadenopathy. SOFT TISSUE/ABDOMINAL WALL: Unremarkable IMPRESSION: 1. No CT evidence for acute/pelvic process. 2. Moderate amount of stool is present within the right proximal colon. 3. Moderate to large size hiatal hernia redemonstrated. 4. Colonic diverticulosis without evidence for acute diverticulitis. 5. Multilevel lumbar compression deformities redemonstrated. [facility], , 07/15/2024 11:38 PM
[2024-07-16] MEDS: MORPHINE SULFATE 4 MG/ML SYRINGE IVP STA (00:36)
[2024-07-16] MEDS: MORPHINE SULFATE 4 MG/ML SYRINGE IV STA (00:36)
[2024-07-16] MEDS: ONDANSETRON 4 MG/2 ML VIAL IVP STA ×2 (00:37→00:40)
[2024-07-16] MEDS: PANTOPRAZOLE 40 MG/10 ML VIAL IVP STA (00:39)
[2024-07-16] MEDS: SODIUM CHLORIDE 0.9% 1,000 ML IV STA ×2 (00:39→00:40)
[2024-07-16 01:13] VITALS: BP 170/81
[2024-07-16] MEDS: PEG 3350 (236 GM/BTL) + LYTES 4,000 ML BOTTLE PO ONE (01:22)
== END 2024-07-16 01:22 | disposition home or self-care (01) ==
LOC: EC 17:25
DX: R10.13 Epigastric pain (principal); Z86.73 Personal history of transient ischemic attack (TIA), and cerebral infarction without residual deficits; F17.200 Nicotine dependence, unspecified, uncomplicated
CPT/HCPCS: 36415; 93005; 80053; 82150; 83605; 83690; 84484; 85025; 85610; 85730; 87636; 71046; 74177; 99284; 96374; 96375; 96361; J2405; Q9967; J2470

== ENCOUNTER 2024-09-13 12:00 | Emergency (ER) | payer MEDICARE ==
[2024-09-13 12:29] VITALS: RESP 18
--- NOTE | 2024-09-13 12:42 | ED ---
General Adult HPI - General Chief complaint: Nausea/Vomiting/Diarrhea Stated complaint: flu like symptoms Time Seen by Provider: 09/13/24 12:03 Source: patient, family Mode of arrival: ambulatory Limitations: no limitations - History of Present Illness Initial comments: Dictation was produced using [employer] dictation software. please excuse any grammatical, word or spelling errors. Chief Complaint: 79-year-old female with flulike symptoms History of Present Illness: Patient 71-year-old female has been suffering 3 days with flulike symptoms states that she has had a sticky throat, nasal congestion, nausea vomiting diarrhea. No obvious sick contacts. States that today she feels really malaised. States that the diarrhea and vomiting had started to improve. Denies any pain complaints. Denies any ear pain. The ROS documented in this emergency department record has been reviewed and confirmed by me. Those systems with pertinent positive or negative responses have been documented in the HPI. All other systems are other negative and/or no ncontributory. - Related Data Home Medications Medication Instructions Recorded Confirmed lisinopriL [Zestril] 20 mg PO HS 04/13/18 09/13/24 Atorvastatin [Lipitor] 40 mg PO DAILY 09/13/24 09/13/24 Mirtazapine [Remeron] 30 mg PO HS PRN 09/13/24 09/13/24 Previous Rx's Medication Instructions Recorded Oseltamivir [Tamiflu] 75 mg PO Q12HR 5 Days #9 cap 09/13/24 Allergies Allergy/AdvReac Type Severity Reaction Status Date / Time No Known Allergies Allergy Verified 09/13/24 14:15 Review of Systems ROS Statement: Those systems with pertinent positive or pertinent negative responses have been documented in the HPI. ROS Other: All systems not noted in ROS Statement are negative. Past Medical History Past Medical History: Cancer, Hyperlipidemia, Hypertension, Vascular Disorder Additional Past Medical History / Comment(s): "no pulse in feet", bladder cancer, History of Any Multi-Drug Resistant Organisms: None Reported Past Surgical History: Bladder Surgery Additional Past Surgical History / Comment(s): angiogram,Stent to rca/lad 03/05; birthmark removed from neck, tumor removed from bladder; adrian. cataracts Past Anesthesia/Blood Transfusion Reactions: No Reported Reaction Past Psychological History: No Psychological Hx Reported Smoking Status: Current every day smoker Past Alcohol Use History: Occasional Past Drug Use History: None Reported - Past Family History Mother Family Medical History: No Reported History General Exam - General Exam Comments Initial Comments: PHYSICAL EXAM: General Impression: Alert and oriented x3, not in acute distress HEENT: Normocephalic atraumatic, extra-ocular movements intact, pupils equal and reactive to light bilaterally, mucous membranes moist. Cardiovascular: Heart regular rate and rhythm Chest: Able to complete full sentences, no retractions, no tachypnea Abdomen: abdomen soft, non-tender, non-distended, no organomegaly Musculoskeletal: Pulses present and equal in all extremities, no peripheral edema Motor: no focal deficits noted Neurological: CN II-XII grossly intact, no focal motor or sensory deficits noted Skin: Intact with no visualized rashes Psych: Normal affect and mood Limitations: no limitations Course Vital Signs 09/13/24 09/13/24 12:06 12:29 Temperature 98.0 F Pulse Rate 88 Respiratory 19 18 Rate Blood Pressure 95/56 O2 Sat by Pulse 95 Oximetry Medical Decision Making - Medical Decision Making Was pt. sent in by a medical professional or institution (, PA, HOME HOSPICE AIDE, urgent care, hospital, or snf...) When possible be specific @ -No Did you speak to anyone other than the patient for history (EMS, parent, family, police, friend...)? What history was obtained from this source @ -No Did you review nursing and triage notes (agree or disagree)? Why? @ -I reviewed and agree with nursing and triage notes Were old charts reviewed (outside hosp., previous admission, EMS record, old EKG, old radiological studies, urgent care reports/EKG's, snf records)? Report findings @ -No old charts were reviewed Differential Diagnosis (chest pain, altered mental status, abdominal pain women, abdominal pain men, vaginal bleeding, musculoskeletal, weakness, fever, dyspnea, syncope, headache, dizziness, GI bleed, back pain, seizure, CVA, palpatations, mental health)? @ -Differential Fever: Pneumonia, viral URI, endocarditis, myocarditis, pericarditis, otitis, sinusitis, peritonsillar Abscess, retropharyngeal Abscess, epiglottitis, peritonitis, appendicitis, Lori cystitis, diverticulitis, hepatitis, colitis, UTI, PID, TOA, pyelonephritis, prostatitis, epididymitis, meningitis, encephalitis, pulmonary embolism, CVA, thyroid storm, pancreatitis, adrenal crisis, cavernous sinus thrombosis, this is not meant to be an all-inclusive list. EKG interpreted by me (3pts min.). @ -None done X-rays interpreted by me (1pt min.). @ -Chest x-ray shows no acute processes CT interpreted by me (1pt min.). @ -None done U/S interpreted by me (1pt. min.). @ -None done What testing was considered but not performed or refused? (CT, X-rays, U/S, labs)? Why? @ -None What meds were considered but not given or refused? Why? @ -None Was smoking cessation discussed for >3mins.? @ -No Were there social determinants of health that impacted care today? How? (Homelessness, low income, unemployed, alcoholism, drug addiction, transportation, low edu. Level, literacy, decrease access to med. care, custodial, rehab)? @ -No Was there de-escalation of care discussed even if they declined (Discuss DNR or withdrawal of care, Hospice)? DNR status @ -No What co-morbidities impacted this encounter? (DM, HTN, Smoking, COPD, CAD, Cancer, CVA, ARF, Chemo, Hep., AIDS, mental health diagnosis, sleep apnea, morbid obesity)? @ -None Was patient admitted / discharged? Hospital course, mention meds given and route, prescriptions, significant lab abnormalities, going to OR and other pertinent info. @ -71-year-old female 3 days of flulike symptoms. Vital signs are stable. Patient given IV fluids. Patient also given Toradol. Laboratory evaluation obtained. Labs within acceptable limits. Influenza A positive. Patient offered Tamiflu and would like to start it. Patient given first dose and prescription sent to her pharmacy. Advise close follow-up with primary care doctor. Did you discuss the management of the patient with other professionals (professionals i.e. , PA, HOME HOSPICE AIDE, lab, RT, psych nurse, social services assistant, road test examiner, teacher, railway patrol officer, case coordinator)? Give summary @ -No Was critical care preformed (if so, how long)? @ -No Undiagnosed new problem with uncertain prognosis? @ -No Drug Therapy requiring intensive monitoring for toxicity (Heparin, Nitro, Insulin, Cardizem)? @ -No Were any procedures done? @ -No Diagnosis/symptom? Acute, or Chronic, or Acute on Chronic? Uncomplicated (without systemic symptoms) or Complicated (systemic symptoms)? @ -Influenza Side effects of treatment? @ -No Exacerbation, Progression, or Severe Exacerbation? @ -No Poses a threat to life or bodily function? How? (Chest pain, [place], [place], pneumonia, PE, COPD, DKA, ARF, appy, cholecystitis, CVA, Diverticulitis, Homicidal, Suicidal, threat to staff... and all critical care pts) @ -No - Lab Data Result diagrams: 09/13/24 13:06 09/13/24 13:06 Lab Results 09/13/24 09/13/24 09/13/24 Range/Units 13:06 13:06 13:06 WBC 8.3 (3.8-10.6) k/uL RBC 4.50 (3.80-5.40) m/uL Hgb 13.4 (11.4-16.0) gm/dL Hct 40.8 (34.0-46.0) % MCV 90.8 (80.0-100.0) fL MCH 29.7 (25.0-35.0) pg MCHC 32.7 (31.0-37.0) g/dL RDW 13.7 (11.5-15.5) % Plt Count 241 (150-450) k/uL MPV 9.0 Neutrophils % 83 % Lymphocytes % 7 % Monocytes % 8 % Eosinophils % 0 % Basophils % 0 % Neutrophils # 6.9 (1.3-7.7) k/uL Lymphocytes # 0.6 L (1.0-4.8) k/uL Monocytes # 0.7 (0-1.0) k/uL Eosinophils # 0.0 (0-0.7) k/uL Basophils # 0.0 (0-0.2) k/uL Sodium 132 L (137-145) mmol/L Potassium 3.1 L (3.5-5.1) mmol/L Chloride 96 L (98-107) mmol/L Carbon Dioxide 28 (22-30) mmol/L Anion Gap 8 mmol/L BUN 13 (7-17) mg/dL Creatinine 0.66 (0.52-1.04) mg/dL Est GFR (CKD-EPI)AfAm >90 (>60 ml/min/1.73 sqM) Est GFR (CKD-EPI)NonAf 85 (>60 ml/min/1.73 sqM) Glucose 122 H (74-99) mg/dL Calcium 8.4 (8.4-10.2) mg/dL Influenza Type A (PCR) Detected A (Not Detectd) Influenza Type B (PCR) Not Detected (Not Detectd) RSV (PCR) Not Detected (Not Detectd) SARS-CoV-2 (PCR) Not Detected (Not Detectd) Disposition Clinical Impression: Influenza Disposition: HOME SELF-CARE Condition: Fair Instructions (If sedation given, give patient instructions): Influenza (DC) Prescriptions: Oseltamivir [Tamiflu] 75 mg PO Q12HR 5 Days #9 cap Is patient prescribed a controlled substance at d/c from ED?: No Referrals: David De La O DO [Primary Care Provider] - 1-2 days Time of Disposition: 14:57
[2024-09-13] MEDS: SODIUM CHLORIDE 0.9% 1,000 ML IV STA (13:06)
[2024-09-13] MEDS: KETOROLAC 15 MG/ML 1 ML VIAL IVP STA (13:13)
[2024-09-13 13:35] LABS: Basophils % (A) 0 %; Eosinophils % (A) 0 %; HCT 40.8 % (34.0-46.0); HGB 13.4 gm/dL (11.4-16.0); Lymphocytes # (A) 0.6 k/uL (1.0-4.8); Lymphocytes % (A) 7 %; MCH 29.7 pg (25.0-35.0); MCHC 32.7 g/dL (31.0-37.0); MCV 90.8 fL (80.0-100.0); Monocytes # (A) 0.7 k/uL (0-1.0); Monocytes % (A) 8 %; Neutrophils # (A) 6.9 k/uL (1.3-7.7); Neutrophils % (A) 83 %; Platelet Count 241 k/uL (150-450); RDW 13.7 % (11.5-15.5); WBC 8.3 k/uL (3.8-10.6)
[2024-09-13 13:43] LABS: African American GFR (CKD) >90 (>60 ml/min/1.73 sqM); Anion Gap 8 mmol/L; Blood Urea Nitrogen 13 mg/dL (7-17); Calcium 8.4 mg/dL (8.4-10.2); Carbon Dioxide 28 mmol/L (22-30); Chloride 96 mmol/L (98-107); Glucose 122 mg/dL (74-99); Non-African American GFR(CKD) 85 (>60 ml/min/1.73 sqM); Potassium 3.1 mmol/L (3.5-5.1); Sodium 132 mmol/L (137-145)
[2024-09-13 14:05] LABS: Influenza A Detected (Not Detectd); Influenza B Not Detected (Not Detectd); RSV Not Detected (Not Detectd)
--- NOTE | 2024-09-13 14:35 | XR ---
EXAMINATION TYPE: XR chest 2V DATE OF EXAM: 09/13/2024 1:34 PM COMPARISON: 07/15/2024 CLINICAL INDICATION: Female, 79 years old with history of malaise, TECHNIQUE: XR chest 2V view(s) obtained. FINDINGS: The heart size is normal. The pulmonary vasculature is normal. Small posterior pleural effusion is present. There is wedge deformity within the mid thoracic spine, present previously. Increased AP diameter and flattening the diaphragms can be associated with COPD. IMPRESSION: 1. Small posterior pleural effusion. 2. COPD [facility], , 09/13/2024 2:33 PM
[2024-09-13] MEDS: OSELTAMIVIR 75 MG CAP PO STA (15:09)
[2024-09-13 15:17] VITALS: BP 104/76; PULSE 82; TEMP 98.1
== END 2024-09-13 15:22 | disposition home or self-care (01) ==
LOC: EC 12:00
DX: J10.1 Influenza due to other identified influenza virus with other respiratory manifestations (principal); F17.200 Nicotine dependence, unspecified, uncomplicated
CPT/HCPCS: 36415; 80048; 85025; 87636; 71046; 99284; 96374; 96361 ×2; J1885

== ENCOUNTER → 2024-10-12 | Outpatient (CLI) | payer MEDICARE ==
--- NOTE | 2024-10-12 14:30 | XR ---
EXAMINATION TYPE: XR chest 2V DATE OF EXAM: 10/12/2024 CLINICAL INDICATION: Female, 79 years old with history of J09.X2 FLU DUE TO IDENT NOVEL INFLUENZA A V IRUS W OTH RESP, TECHNIQUE: Frontal and lateral views of the chest are obtained. COMPARISON: Chest x-ray September 13, 2024 FINDINGS: There is chronic emphysematous change without suspicious focal air space opacity, pleural effusion, or pneumothorax seen. There is mild cardiomegaly redemonstrated. The osseous structures r emain demineralized. Mild to moderate chronic compression fractures in the midthoracic spine are note d. IMPRESSION: Chronic changes without acute pulmonary process. [facility], , 10/12/2024 2:27 PM
== END | disposition home or self-care (01) ==
LOC: RADXRMAIN 13:58
PROVIDERS: ATTEND Nurse Practitioner Family
DX: J09.X2 Influenza due to identified novel influenza A virus with other respiratory manifestations (principal); M48.54XA Collapsed vertebra, not elsewhere classified, thoracic region, initial encounter for fracture
CPT/HCPCS: 71046

== ENCOUNTER 2024-12-23 10:40 | Emergency (ER) | payer MEDICARE ==
[2024-12-23 10:46] VITALS: RESP 20
--- NOTE | 2024-12-23 10:55 | ED ---
Upper Extremity HPI - General Chief Complaint: Extremity Injury, Upper Stated Complaint: L Wrist Injury Time Seen by Provider: 12/23/24 10:47 Source: patient, family, RN notes reviewed Mode of arrival: ambulatory Limitations: no limitations - History of Present Illness Initial Comments: This is a 79-year-old female who presents to the emergency department for left wrist pain. States that she was walking her dog and it was pulling hard on the leash, causing her to fall. She injured her left wrist in the process. She since had pain and bruising to this area and is having difficulty fully using the wrist. She does also have a small skin tear over the palm of her hand. Tetanus vaccine is up-to-date. Denies sustaining any additional injuries. D enies hitting her head or any LOC. MD Complaint: Injury to:: left, wrist - Related Data Home Medications Medication Instructions Recorded Confirmed lisinopriL [Zestril] 20 mg PO HS 04/13/18 09/13/24 Atorvastatin [Lipitor] 40 mg PO DAILY 09/13/24 09/13/24 Mirtazapine [Remeron] 30 mg PO HS PRN 09/13/24 09/13/24 Previous Rx's Medication Instructions Recorded Oseltamivir [Tamiflu] 75 mg PO Q12HR 5 Days #9 cap 09/13/24 Allergies Allergy/AdvReac Type Severity Reaction Status Date / Time No Known Allergies Allergy Verified 09/13/24 14:15 Review of Systems ROS Statement: Those systems with pertinent positive or pertinent negative responses have been documented in the HPI. ROS Other: All systems not noted in ROS Statement are negative. Past Medical History Past Medical History: Cancer, Hyperlipidemia, Hypertension, Vascular Disorder Additional Past Medical History / Comment(s): "no pulse in feet", bladder cancer, History of Any Multi-Drug Resistant Organisms: None Reported Past Surgical History: Bladder Surgery Additional Past Surgical History / Comment(s): angiogram,Stent to rca/lad 03/05; birthmark removed from neck, tumor removed from bladder; adrian. cataracts Past Anesthesia/Blood Transfusion Reactions: No Reported Reaction Past Psychological History: No Psychological Hx Reported Smoking Status: Current every day smoker Past Alcohol Use History: Occasional Past Drug Use History: None Reported - Past Family History Mother Family Medical History: No Reported History General Exam Limitations: no limitations General appearance: alert, in no apparent distress Head exam: Present: atraumatic, normocephalic, normal inspection Respiratory exam: Present: normal lung sounds bilaterally. Absent: respiratory distress, wheezes, rales, rhonchi, stridor Cardiovascular Exam: Present: regular rate, normal rhythm Extremities exam: Present: other (Swelling, ecchymosis, and tenderness over the left wrist. Range of motion limited by pain. Superficial skin tear over the palm of the hand. 2+ radial pulses) Neurological exam: Present: alert, oriented X3, CN II-XII intact Psychiatric exam: Present: normal affect, normal mood Course Vital Signs 12/23/24 12/23/24 10:42 12:05 Temperature 97.4 F L 98.1 F Pulse Rate 109 H 68 Respiratory 20 20 Rate Blood Pressure 132/72 117/68 O2 Sat by Pulse 95 99 Oximetry Procedures - Orthopedic Splinting/Casting Injury #1 Side: left Upper Extremity Injury Location: wrist Upper Extremity Immobilizer: volar splint, Jacek wrap, fiberglass cast Medical Decision Making - Medical Decision Making This is a 79-year-old female who presents to the emergency department for left wrist pain after a fall. Was pt. sent in by a medical professional or institution? @ -No Did you speak to anyone other than the patient for history? @ -No Did you review nursing and triage notes? @ -Yes, and I agree, it is accurate with regards to the patient's symptoms. Were old charts reviewed? @ -No Differential Diagnosis? @ -Differential Musculoskeletal Muscular strain, contusion, ligament sprain, fracture, arthritis, septic arthritis, bursitis, cellulitis, muscle spasm, nerve compression, DVT, arterial occlusion, herpes zoster, electrolyte abnormality, tumor.... This is not meant to be in all inclusive list EKG interpreted by me (3pts min.)? @ -Not obtained X-rays interpreted by me (1pt min.)? @ -X-ray of the left wrist obtained. My interpretation identifies an irregularity over the distal radius. CT interpreted by me (1pt min.)? @ -Not obtained U/S interpreted by me (1pt. min.)? @ -Not obtained What testing was considered but not performed? (CT, X-rays, U/S, labs)? Why? @ -None What meds were considered but not given? Why? @ -None Did you discuss the management of the patient with other professionals? @ -No Did you reconcile home meds? @ -No Was smoking cessation discussed for >3mins.? @ -I discussed smoking cessation for greater than 3 minutes. The risk of smoking were discussed with the patient including but not limited to risks of cancer, stroke, coronary artery disease and COPD. Also discussed with patient were multiple methods of quitting smoking. Lastly we discussed the financial cost of smoking. Was critical care preformed (if so, how long)? @ -No Were there social determinants of health that impacted care today? How? (Homelessness, low income, unemployed, alcoholism, drug addiction, transportation, low edu. Level, literacy, decrease access to med. care, alf, rehab)? @ -No Was there de-escalation of care discussed even if they declined? (Discuss DNR or withdrawal of care, Hospice)? @ -No What co-morbidities impacted this encounter? (DM, HTN, Smoking, COPD, CAD, Cancer, CVA, Hep., AIDS, mental health diagnosis, sleep apnea, morbid obesity)? @ -Smoking Was patient admitted / discharged? @ -Discharged. X-ray of the left wrist obtained and the report was read as negative. However, on evaluation of the imaging with Dr. Bose, there appeared to be a questionable step-off or irregularity in the distal radius. They did also note that occult fractures would be difficult to exclude with her osteoporosis. Volar splint was subsequently applied. Advised ice and elevation and she was given information for follow-up with orthopedics. Patient discharged home in stable condition. Case discussed with ED attending Dr. Bose. Return precautions reviewed in depth, the patient is instructed to return to the emergency department with any new, worsening, or concerning symptoms. Patient verbalized understanding. Undiagnosed new problem with uncertain prognosis? @ -None Drug Therapy requiring intensive monitoring for toxicity (Heparin, Nitro, Insulin, Cardizem)? @ -None Were any procedures done? @ -Left volar splint application Diagnosis/symptom? @ -Left wrist injury Acute, or Chronic, or Acute on Chronic? @ -Acute Uncomplicated (without systemic symptoms) or Complicated (systemic symptoms)? @ -Uncomplicated Side effects of treatment? @ -None Exacerbation, Progression, or Severe Exacerbation] @ -Not applicable Poses a threat to life or bodily function? @ -May limit her use of the left arm for the meantime. - Radiology Data Radiology results: report reviewed, image reviewed Disposition Clinical Impression: Left wrist injury, Fall, Nicotine dependence Disposition: HOME SELF-CARE Instructions (If sedation given, give patient instructions): Wrist Injury (ED), Wrist Sprain (ED) Additional Instructions: Return to the emergency department with any new, worsening, or concerning symptoms. Take Tylenol as needed for pain relief and take the Tylenol with codeine sparingly when your pain is the most severe. Apply ice when you are able to. Contact orthopedics as listed below first thing Wednesday morning. Let them know that you were seen in the emergency department for a left wrist injury and there was a possible fracture. They will schedule you for a follow-up appointment. Is patient prescribed a controlled substance at d/c from ED?: No Referrals: None,Stated [REFERRING] - 1-2 days Wilfredo Fabian DO [Doctor of Osteopathic Medicine] - 1-2 days Time of Disposition: 12:05
[2024-12-23] MEDS: HYDROcodone/APAP 5-325MG 1 EACH TAB PO STA (10:56)
--- NOTE | 2024-12-23 11:37 | XR ---
EXAMINATION TYPE: XR wrist complete LT DATE OF EXAM: 12/23/2024 11:14 AM COMPARISON: None. CLINICAL INDICATION: Female, 79 years old with history of Fall, pain TECHNIQUE: 4 view(s) obtained. FINDINGS: Structures are osteoporotic. Correlation with bone density can be performed. Joint spaces are preserved. No acute fracture or dislocation evident. Secondary ossification is adjac ent to the distal carpal row at the level of the trapezium. There is loss of the first metacarpal pha langeal joint space. Scaphoid appears intact. Soft tissues appear normal Occult fractures may be difficult to identify with osteoporosis. Follow up exams can be performed 7- 10 days from acute trauma for continued pain. If there is pain at the anatomic snuff box, nuclear m edicine bone scan could be performed. IMPRESSION: 1. No acute osseous abnormality left wrist. 2. Osteoporosis. [facility], , 12/23/2024 11:35 AM
[2024-12-23 12:06] VITALS: BP 117/68; PULSE 68; TEMP 98.1
[2024-12-23] MEDS: ACET/COD 300 MG/30 MG STARTER PACK 6 TAB BTL PO STA (12:09)
== END 2024-12-23 12:16 | disposition home or self-care (01) ==
LOC: EC 10:40
DX: S60.212A Contusion of left wrist, initial encounter (principal); F17.200 Nicotine dependence, unspecified, uncomplicated; W19.XXXA Unspecified fall, initial encounter; Y93.K1 Activity, walking an animal
CPT/HCPCS: 29125; 99283

== ENCOUNTER 2025-01-23 06:09 | Day surgery (SDC) | payer MEDICARE ==
[2025-01-23] MEDS: EMPTY BAG 1 BAG with SODIUM CHLORIDE 0.9% 1,000 ML IV SCH (06:46)
[2025-01-23] MEDS: IV FLUID CONTINUATION 1,000 ML IV ONE (06:51)
[2025-01-23] MEDS: ASPIRIN 81 MG PO STA (07:17)
[2025-01-23] MEDS: fentaNYL (PF) 50 MCG/1 ML VIAL IVP ONE (07:52)
[2025-01-23] MEDS: MIDAZOLAM 2 MG/2 ML VIAL IVP ONE (07:52)
[2025-01-23] MEDS: LIDOCAINE 1% INJ 10MG/ML (20 ML MDV) SQ ONE (07:55)
[2025-01-23] MEDS: HEPARIN SODIUM 1,000 UN/ML (10ML VL) IVP ONE (08:00)
[2025-01-23] MEDS: IOPAMIDOL-370 100ML BTL INJ ONE (08:09)
[2025-01-23] MEDS: HEPARIN SODIUM,PORCINE 10,000 UNIT in SODIUM CHLORIDE 0.9% 1,000 ML IRRIGATION ONE (08:10)
[2025-01-23] MEDS ORDERED: NALOXONE 0.4 MG/ML 1 ML VIAL IVP PRN (08:16)
--- NOTE | 2025-01-23 08:16 | P.PCN ---
Date of Procedure: 01/23/25 Operative Findings: AN ABDOMINAL AORTOGRAM AND BILATERAL LOWER EXTREMITIES RUNOFF PERFORMING PHYSICIAN: Sawyer Kemp MD PROCEDURE PERFORMED: 1. An abdominal aortogram 2. Bilateral lower extremities runoff 3. Ultrasound-guided access of the right radial artery INDICATION: Symptomatic 79-year-old female patient with known history of PAD and prior revascularization COMPLICATION: Right radial artery LEVEL OF SEDATION: Moderate was sedation length of 15 minutes APPROACH: Right common femoral artery PROCEDURE DESCRIPTION: After obtaining informed consent and explaining the procedure benefits, risks, and complications, the patient was brought to the cardiac laboratory associate. The right radial artery was prepped and draped in sterile fashion. The right radial artery was cannulated using micropuncture technique, under ultrasound guidance. A micropuncture wire was advanced, and the micropuncture sheath was advanced over the wire, then the micropuncture sheath was exchanged over an 0.35 wire into a 5-Panamanian sheath dilator assembly then the wire and dilator were removed and sheath was flushed. We did an abdominal aortogram and bilateral lower extremities runoff using 5- Panamanian pigtail catheter using a power injection. The catheter was initially placed at the level of the renal arteries, and it was pulled into above the bifurcation of the aorta into right and left common iliac arteries. The procedure was completed and there was no complications. SELECTIVE PERIPHERAL ANGIOGRAM: The abdominal aorta: Calcified with mild disease only The common iliac arteries: Are patent The external iliac arteries: Are patent The internal iliac arteries: Are patent The common femoral arteries: Are patent Superficial femoral arteries: Both SFA are occluded on long segment Popliteal arteries: Are patent Below the knees: There are 3 vessels runoff below the knee bilaterally CONCLUSION: Mild aortoiliac disease Occluded bilateral SFA POSTPROCEDURE MANAGEMENT: GLOBAL SALES MANAGER
--- NOTE | 2025-01-23 09:19 | IR ---
EXAMINATION TYPE: IR angio abdominal w runoff DATE OF EXAM: 01/23/2025 9:03 AM COMPARISON: Pre Operative Images if available both CT/MRI or plain film CLINICAL INDICATION: Female, 79 years old with history of LEG PAIN FL 2.7 DAP 5.94 TR BAND 12 CC; TECHNIQUE: IR angio abdominal w runoff, multiple fluoroscopic images provided for procedure. DAP: 2.7 mGym2 Gycm2 uGym2 cGycm2 or equivalent. FINDINGS: IMPRESSION: 1. Report was generated for administrative purposes only. 2. Please see the operative/procedural note for further details. [facility], , 01/23/2025 9:16 AM
[2025-01-23] MEDS: SODIUM CHLORIDE 0.9% 1,000 ML in EMPTY BAG 1 BAG IV ONE (11:36)
[2025-01-23] MEDS: CLOPIDOGREL 75 MG TAB PO SCH (11:42)
[2025-01-23] MEDS: FAMOTIDINE 20 MG TAB PO SCH (14:09)
[2025-01-23] MEDS ORDERED: MIRTAZAPINE 15 MG TAB PO PRN (21:00)
[2025-01-24] MEDS ORDERED: HEPARIN SODIUM,PORCINE (1 ML) 2,500 UNIT in SODIUM CHLORIDE 0.9% 250 ML IRRIGATION PRN (07:00)
[2025-01-24] MEDS ORDERED: HEPARIN SODIUM,PORCINE 10,000 UNIT in SODIUM CHLORIDE 0.9% 1,000 ML IRRIGATION PRN (07:00)
[2025-01-24 08:01] LABS: Basophils % (A) 0.7 %; Eosinophils % (A) 2.1 %; HCT 36.0 % (37.2-46.3); HGB 11.4 g/dL (12.0-15.0); Lymphocytes # (A) 1.59 X 10*3/uL (0.90-5.00); Lymphocytes % (A) 28.3 %; MCH 29.0 pg (27.0-32.0); MCHC 31.7 g/dL (32.0-37.0); MCV 91.6 FL (80.0-97.0); Monocytes % (A) 11.9 %; NRBC Per 100 WBC 0 X 10*3/uL (0.00-0.01); Neutrophils # (A) 3.19 X 10*3/uL (1.80-7.70); Neutrophils % (A) 56.8 %; Platelet Count 238 X 10*3/uL (140-440); RBC 3.93 X 10*6/uL (4.10-5.20); RDW 14.0 % (11.5-14.5); WBC 5.62 X 10*3/uL (4.50-10.00)
[2025-01-24 08:02] LABS: Basophils # (A) 0.04 X 10*3/uL (0.00-0.10); Eosinophils # (A) 0.12 X 10*3/uL (0.04-0.35); Immature Grans, Automated 0.20 %; Monocytes # (A) 0.67 X 10*3/uL (0.20-1.00)
[2025-01-24 08:32] LABS: Anion Gap 8.20 mmol/L (4.00-12.00); BUN/Creat Ratio 23.67 Ratio (12.00-20.00); Blood Urea Nitrogen 14.2 mg/dL (9.0-27.0); Calcium 8.3 mg/dL (8.7-10.3); Carbon Dioxide 21.8 mmol/L (21.6-31.8); Chloride 108 mmol/L (96-109); Glucose 87 mg/dL (70-110); Potassium 4.6 mmol/L (3.5-5.5); Sodium 138 mmol/L (135-145)
[2025-01-24 10:52] VITALS: BMI 14.6
[2025-01-24] MEDS: MIDAZOLAM 2 MG/2 ML VIAL IVP ONE ×5 (12:41→14:38)
[2025-01-24] MEDS: LIDOCAINE 2% (PF) 20 MG/ML 5 ML VIAL SQ ONE (12:41)
[2025-01-24] MEDS: fentaNYL (PF) 50 MCG/1 ML VIAL IVP ONE ×3 (12:41→13:16)
[2025-01-24] MEDS: PHENYLEPHRINE-0.9% NACL SYG 1,000 MCG/10 ML SYRINGE IVP ONE ×2 (12:50→14:06)
[2025-01-24] MEDS: HEPARIN SODIUM 1,000 UN/ML (10ML VL) IVP ONE ×4 (12:51→14:52)
[2025-01-24] MEDS: HYDROmorphone 0.5 MG/0.5 ML SYRINGE IVP ONE ×2 (13:58→15:27)
[2025-01-24] MEDS: CLOPIDOGREL 75 MG TAB PO ONE (14:13)
[2025-01-24] MEDS: NITROGLYCERIN 1000MCG/10ML SYRINGE INTRAARTER ONE ×2 (15:27→15:54)
[2025-01-24] MEDS: niCARdipine Syringe (1,000 mcg/10 mL) INTRAARTER ONE ×2 (15:27→15:55)
[2025-01-24] MEDS: SODIUM CHLORIDE 0.9% 1,000 ML IV ONE (15:55)
[2025-01-24] MEDS: HEPARIN SODIUM,PORCINE 10,000 UNIT in SODIUM CHLORIDE 0.9% 1,000 ML IRRIGATION ONE (15:56)
[2025-01-24] MEDS ORDERED: NALOXONE 0.4 MG/ML 1 ML VIAL IVP PRN (16:04)
[2025-01-24] MEDS: IOPAMIDOL-370 100ML BTL INTRATHECA ONE (16:06)
[2025-01-24] MEDS: SODIUM CHLORIDE 0.9% 500 ML 500 ML with niCARdipine 6.25 MG, NITROGLYCERIN-D5W PMX 0.05... IV ONE (18:07)
[2025-01-24] MEDS: ALPRAZolam 0.25 MG TAB PO PRN (19:07)
[2025-01-24 19:58] LABS: Glucose,Whole Blood 118 mg/dL (70-110)
[2025-01-24] MEDS ORDERED: ACETAMINOPHEN TAB 325 MG TAB PO PRN (20:16)
[2025-01-24] MEDS: ASPIRIN 81 MG PO SCH (20:21)
[2025-01-24] MEDS: traMADol 50 MG TAB PO PRN (20:25)
[2025-01-24] MEDS: FAMOTIDINE 20 MG TAB PO SCH (20:27)
[2025-01-24] MEDS: SODIUM CHLORIDE 0.9% 1,000 ML in EMPTY BAG 1 BAG IV SCH (20:28)
[2025-01-25 02:34] LABS: Glucose,Whole Blood 147 mg/dL (70-110)
[2025-01-25 03:43] VITALS: TEMP 98.1
--- NOTE | 2025-01-25 07:00 | P.PCN ---
Date of Procedure: 01/24/25 Operative Findings: Percutaneous peripheral arterial intervention Performing physician Sawyer Kemp MD Procedure performed Successful ORACLE TECHNICAL DEVELOPER and stenting of the left popliteal and left SFA using multiple Zilver drug-eluting stent and also using a short balloon expandable stent with an excellent angiographic results and reduction of stenosis from 100% to 0% Adjunctive use of IVUS as well as atherectomy Left lower extremity angiogram and right common femoral artery angiogram Ultrasound-guided access of the right common femoral artery Indication Symptomatic 79-year-old female patient with occluded left SFA and left popliteal Approach Right common femoral artery Complication None Level of sedation Moderate to sedation length of 200 minutes Procedure description After obtaining informed consent the patient was brought to the cardiac Cambering Machine Operator. The right common femoral artery was cannulated using micropuncture technique under ultrasound guidance a micropuncture wire passed easily then I placed a 6 Congolese 11 cm sheath at the right common femoral artery which was subsequently exchanged into a 70 cm sheath using a 3 5 stiff Glidewire. Anticoagulation was initiated using heparin with continuous ACT monitoring. Subsequently I was able to go up and over using a 035 stiff Glidewire with the backup support of 5 Congolese straight catheter and the sheath was parked at the left common femoral artery. Attempting crossing the FURNISHINGS CONSERVATOR of the left SFA and left popliteal was performed extensively using initially 018 wire and subsequently 035 wire and was successful. The wire was advanced all the way to the left popliteal and confirmed that I was in the true lumen. After that I did a balloon angioplasty initially using 3 mm balloon but subsequently using also a coronary balloon because there was a very concerning area inside the old stent in the left SFA/popliteal. I did IVUS of the left SFA and left popliteal which was performed using manual pullback and showed that I was in the true lumen most of the time. There is an area in the proximal edge of the old stent concerning and looks even more concerning after balloon angioplasty and for that reason I decided to deploy balloon expandable stent at that segment. Distal to that and proximal to that I deployed multiple Zilver PTX drug-coated stent. Distal to that area I deployed 7.0 x 100 mm Zilver PTX drug-coated stent and proximal to that I deployed 7.0 x 140 and 7.0 x 120. Postdilatation was performed using 6 mm balloon. Please note that I did also atherectomy of the very proximal left SFA using the Hawk 1 device. The final angiogram showed excellent angiographic results and the procedure was completed with no complication after that I did exchange my long sheath into short sheath using a 035 stiff Glidewire before I did selective right common femoral artery angiogram and the procedure was completed with no complication Postprocedure management Dual antiplatelet therapy Risk factors modification Follow-up with the patient
--- NOTE | 2025-01-25 08:12 | IR ---
EXAMINATION TYPE: IR stent intravas non coronary Intraoperative/procedural fluoroscopic services were provided. CLINICAL INDICATION:Female, 79 years old with history of Leg pain, 73.3m/9.99DAP, rt gr sheath suture d in.; , LOCATED WITHIN [facility] FINDINGS: Multiple fluoroscopic images were obtained. Report was generated for administrative purposes only. Total fluoroscopy time is 73.3 min. DAP: 9.99 Gycm2 Please see the operative/procedural note for further details. [facility], , 01/25/2025 8:10 AM
--- NOTE | 2025-01-25 08:13 | P.DS ---
Providers Attending physician: Sawyer Kemp Primary care physician: [facility] Course: The patient is a 79-year-old female patient who underwent yesterday successful COMMUNITY OUTREACH DIRECTOR of the left SFA She was seen and evaluated this morning. The right groin is soft and nontender with no bruises The patient is going to be discharged home on dual antiplatelet therapy and I will follow-up with the patient next week in the office Plan - Discharge Summary Discharge Rx Participant: Yes New Discharge Prescriptions: New Aspirin 81 mg PO DAILY #90 tab Atorvastatin Calcium [Lipitor] 40 mg PO DAILY #90 tablet Clopidogrel [Plavix] 75 mg PO DAILY #90 tab Continue lisinopriL [Zestril] 20 mg PO HS Mirtazapine [Remeron] 30 mg PO HS PRN PRN Reason: Insomnia Famotidine [Pepcid] 20 mg PO BID Discharge Medication List lisinopriL [Zestril] 20 mg PO HS 04/13/18 [History] Mirtazapine [Remeron] 30 mg PO HS PRN 09/13/24 [History] Famotidine [Pepcid] 20 mg PO BID 01/22/25 [History] Aspirin 81 mg PO DAILY #90 tab 01/25/25 [Rx] Atorvastatin Calcium [Lipitor] 40 mg PO DAILY #90 tablet 01/25/25 [Rx] Clopidogrel [Plavix] 75 mg PO DAILY #90 tab 01/25/25 [Rx] Follow up Appointment(s)/Referral(s): Sawyer Kemp MD [STAFF PHYSICIAN] - 1 Week (OFFICE WILL CALL PATIENT WITH A FOLLOW UP APPOINTMENT DATE/TIME. ) Patient Instructions/Handouts: Moderate Sedation (DC), Fall Prevention (DC), Angiogram (DC)
[2025-01-25 08:55] VITALS: BP 135/64; PULSE 78; RESP 14
[2025-01-25 09:52] LABS: African American GFR (CKD) 79 (>60 ml/min/1.73 sqM); Non-African American GFR(CKD) 69 (>60 ml/min/1.73 sqM)
== END 2025-01-25 10:48 | disposition home or self-care (01) ==
LOC: CATHCVL 06:09 → 6NMEDSUR 08:05 → 3SCARD 01-24 14:44 → CATHCVL 01-25 10:48
PROVIDERS: ATTEND Internal Medicine Interventional Cardiology
DX: I70.213 Atherosclerosis of native arteries of extremities with intermittent claudication, bilateral legs (principal); I10 Essential (primary) hypertension; E78.5 Hyperlipidemia, unspecified; F17.200 Nicotine dependence, unspecified, uncomplicated; Z79.02 Long term (current) use of antithrombotics/antiplatelets; Z79.82 Long term (current) use of aspirin; Z79.899 Other long term (current) drug therapy
CPT/HCPCS: 36200; 37227; 75625; 75716; 76937; 37252; 80048; 82565; 85025; 99152; 99153; C1769 ×2; C1894; J2250 ×2; J1644 ×4; J2003 ×2; J1171; Q9967 ×2; J3010 ×2; J2371; J2305

== ENCOUNTER 2025-02-07 10:00 | Day surgery (SDC) | payer MEDICARE ==
[~2025-02-07 10:00] MED LIST changes: +ALPRAZolam 0.5 MG TAB PO PRN; -ASPIRIN 325 MG TAB PO ONE; +HEPARIN SODIUM,PORCINE (1 ML) 2,500 UNIT in SODIUM CHLORIDE 0.9% 250 ML IRRIGATION PRN; +HEPARIN SODIUM,PORCINE 10,000 UNIT in SODIUM CHLORIDE 0.9% 1,000 ML IRRIGATION PRN; -SODIUM CHLORIDE 0.9% 1,000 ML in EMPTY BAG 1 BAG IV ONE; +ZOLPIDEM 5 MG TAB PO PRN
[2025-02-07] MEDS: IV FLUID CONTINUATION 1,000 ML IV ONE (10:11)
[2025-02-07] MEDS: EMPTY BAG 1 BAG with SODIUM CHLORIDE 0.9% 1,000 ML IV SCH (10:22)
[2025-02-07] MEDS: CLOPIDOGREL 75 MG TAB PO STA (10:23)
[2025-02-07 10:47] LABS: Basophils # (A) 0.03 10*3/uL (0.00-0.10); Basophils % (A) 0.5 %; Eosinophils # (A) 0.09 10*3/uL (0.04-0.35); Eosinophils % (A) 1.4 %; HCT 36.4 % (37.2-46.3); HGB 11.8 g/dL (12.0-15.0); Lymphocytes # (A) 1.45 10*3/uL (0.90-5.00); Lymphocytes % (A) 23.2 %; MCH 29.1 pg (27.0-32.0); MCHC 32.4 g/dL (32.0-37.0); MCV 89.9 fL (80.0-97.0); Monocytes # (A) 0.63 10*3/uL (0.20-1.00); Monocytes % (A) 10.1 %; Neutrophils # (A) 4.03 10*3/uL (1.80-7.70); Neutrophils % (A) 64.5 %; Platelet Count 378 10*3/uL (140-440); RBC 4.05 10*6/uL (4.10-5.20); RDW 14.4 % (11.5-14.5); WBC 6.25 10*3/uL (4.50-10.00)
[2025-02-07 11:03] LABS: African American GFR (CKD) >90 (>60 ml/min/1.73 sqM); Anion Gap 7 mmol/L; Blood Urea Nitrogen 12 mg/dL (7-17); Calcium 9.2 mg/dL (8.4-10.2); Carbon Dioxide 27 mmol/L (22-30); Chloride 107 mmol/L (98-107); Glucose 92 mg/dL (74-99); Non-African American GFR(CKD) 85 (>60 ml/min/1.73 sqM); Potassium 4.1 mmol/L (3.5-5.1); Sodium 141 mmol/L (137-145)
[2025-02-07] MEDS: MIDAZOLAM 2 MG/2 ML VIAL IVP ONE (12:58)
[2025-02-07] MEDS: HEPARIN SODIUM (1,000 UNIT/ML) 1,000 UNIT in SODIUM CHLORIDE 0.9% 1,000 ML IRRIGATION ONE (13:01)
[2025-02-07] MEDS: HEPARIN SODIUM,PORCINE (1 ML) 2,500 UNIT in SODIUM CHLORIDE 0.9% 250 ML IRRIGATION ONE (13:01)
[2025-02-07] MEDS: LIDOCAINE 1% INJ 10MG/ML (20 ML MDV) SQ ONE (13:11)
[2025-02-07] MEDS: HEPARIN SODIUM 1,000 UN/ML (10ML VL) IVP ONE ×2 (13:18→14:41)
[2025-02-07] MEDS: fentaNYL (PF) 50 MCG/ML 2 ML AMP IVP ONE (14:17)
[2025-02-07] MEDS: HYDROmorphone 1 MG/ML 1 ML SYRINGE IVP ONE (14:18)
[2025-02-07] MEDS: NITROGLYCERIN 1000MCG/10ML SYRINGE INTRAARTER ONE (14:48)
[2025-02-07] MEDS: niCARdipine Syringe (1,000 mcg/10 mL) INTRAARTER ONE (14:49)
[2025-02-07] MEDS: IOPAMIDOL-370 100ML BTL INJ ONE (14:50)
[2025-02-07] MEDS ORDERED: MIRTAZAPINE 15 MG TAB PO PRN (15:02)
[2025-02-07] MEDS ORDERED: NALOXONE 0.4 MG/ML 1 ML VIAL IVP PRN (15:03)
--- NOTE | 2025-02-07 15:07 | P.PCN ---
Date of Procedure: 02/07/25 Operative Findings: PERCUTANEOUS PERIPHERAL INTERVENTION Performing physician Sawyer Kemp M.D. Procedure performed 1. Angioplasty and stenting of the right SFA and popliteal 2. Adjunctive use of IVUS and atherectomy 3. Right lower extremity angiogram and left common femoral artery angiogram 4. Ultrasound-guided access of the left common femoral artery Indication CLI of the right lower extremity Approach Left common femoral artery Complications None Level of sedation Moderate with a sedation time of an hour and 45 minutes minutes Procedure description After obtaining informed consent the patient was brought to the cardiac Stationary Engineer Refrigeration. The left common femoral artery was cannulated using micropuncture technique under ultrasound guidance a micropuncture wire passed easily then I placed a 6 Tanzanian 11 cm sheath at the left common femoral artery which was subsequently exchanged into a 6 Tanzanian 70 cm sheath using 035 stiff glide wire which was advanced up and over to the right profunda. Subsequently I did advance the sheath over the wire and dilator into the right common femoral artery with right lower extremity angiogram was performed and showed occluded right SFA which is a known finding from before with 2 vessels runoff below the knee including anterior tibial and peroneal. Anticoagulation was initiated using heparin and subsequently I did cross the VENEER GLUE JOINTER FEEDBACK of the right SFA and pop it using a 035 stiff Glidewire. Subsequently 014 wire was placed and IVUS was performed. An atherectomy of the right SFA was performed using the Hawk 1 device and for in-stent restenosis using the Rota Delmer device. After that balloon angioplasty was performed using 5 mm balloon. Stenting of the right SFA was performed using 6 mm x 140 and DCB of the rest of the SFA and popliteal was performed using 5 mm DCB balloon. Final angiogram showed good angiographic results and the procedure was completed with no complication but subsequently I did exchange my long sheath into short sheath using a 035 stiff Glidewire. Selective left common femoral artery angiogram was performed by the end Postprocedure management 1. Dual antiplatelet therapy 2. Aggressive cholesterol control 3. Risk factors modification 4. Follow-up with the patient
--- NOTE | 2025-02-07 16:27 | IR ---
Fluoroscopy INDICATION: Right leg Pain FINDINGS: Fluoroscopy time: 35.5 minutes Total dose area product (DAP) in uGy*m?, mGy*cm? (or similar): 2.96 Images obtained: 3300. Images document right lower extremity angiogram. Stenting is noted on the right. IMPRESSION: 1. Documentation of fluoroscopy. [facility], Workstation: [facility], 02/07/2025 4:25 PM
[2025-02-07] MEDS: SODIUM CHLORIDE 0.9% 1,000 ML in EMPTY BAG 1 BAG IV SCH (18:45)
[2025-02-07] MEDS: FAMOTIDINE 20 MG TAB PO SCH (21:06)
[2025-02-08 02:22] VITALS: RESP 17
[2025-02-08 06:56] LABS: African American GFR (CKD) >90 (>60 ml/min/1.73 sqM); Non-African American GFR(CKD) 90 (>60 ml/min/1.73 sqM)
[2025-02-08] MEDS: CLOPIDOGREL 75 MG TAB PO SCH (08:54)
[2025-02-08] MEDS: ATORVASTATIN 40 MG TAB PO SCH (08:54)
[2025-02-08] MEDS: ASPIRIN 81 MG PO SCH (08:54)
[2025-02-08 09:08] VITALS: BP 147/71; PULSE 73; TEMP 98.2
--- NOTE | 2025-02-08 10:15 | P.DS ---
Providers Attending physician: Sawyer Kemp Primary care physician: [facility] Course: The patient is a pleasant 79-year-old female patient who underwent yesterday successful LIVESTOCK NUTRITION TERRITORY MANAGER of the right SFA The patient was seen and evaluated this morning. She is stable. She is asymptomatic. The left groin is soft and nontender with no bruises. The patient is going to be discharged home on dual antiplatelet therapy and I will follow-up with the patient next week in the office Plan - Discharge Summary Discharge Rx Participant: No New Discharge Prescriptions: Continue lisinopriL [Zestril] 20 mg PO HS Mirtazapine [Remeron] 30 mg PO HS PRN PRN Reason: Insomnia Famotidine [Pepcid] 20 mg PO BID Aspirin 81 mg PO DAILY #90 tab Atorvastatin Calcium [Lipitor] 40 mg PO DAILY #90 tablet Clopidogrel [Plavix] 75 mg PO DAILY #90 tab Discharge Medication List lisinopriL [Zestril] 20 mg PO HS 04/13/18 [History] Mirtazapine [Remeron] 30 mg PO HS PRN 09/13/24 [History] Famotidine [Pepcid] 20 mg PO BID 01/22/25 [History] Aspirin 81 mg PO DAILY #90 tab 01/25/25 [Rx] Atorvastatin Calcium [Lipitor] 40 mg PO DAILY #90 tablet 01/25/25 [Rx] Clopidogrel [Plavix] 75 mg PO DAILY #90 tab 01/25/25 [Rx] Follow up Appointment(s)/Referral(s): Sawyer Kemp MD [STAFF PHYSICIAN] - 1 Week (OFFICE WILL CALL PATIENT WITH A FOLLOW UP APPOINTMENT DATE/TIME. )
[2025-02-08 10:25] VITALS: BMI 15.8
== END 2025-02-08 10:55 | disposition home or self-care (01) ==
LOC: CATHCVL 10:00 → 6NMEDSUR 17:26 → CATHCVL 02-08 10:55
PROVIDERS: ATTEND Internal Medicine Interventional Cardiology
DX: I70.221 Atherosclerosis of native arteries of extremities with rest pain, right leg (principal); E78.5 Hyperlipidemia, unspecified; I10 Essential (primary) hypertension; Z79.02 Long term (current) use of antithrombotics/antiplatelets; Z79.82 Long term (current) use of aspirin; Z79.899 Other long term (current) drug therapy
CPT/HCPCS: 37227; 76937; 37252; 80048; 82565; 85025; 99152; 99153; C1894 ×2; C1769 ×5; C1714; C1753; C1874; C2623; C2628; C1725; J2250; J1644 ×2; J2003; J3010; J1171; Q9967; J2305